=== PATIENT | male | born 1975 | race Caucasian/White ===

== ENCOUNTER 2021-01-16 04:59 | Inpatient (IN) | payer OTHER ==
[2021-01-16] MEDS ORDERED: NITROGLYCERIN SL TABS 0.4 MG TAB SUBLINGUAL STA ×2 (05:00→05:04)
[2021-01-16] MEDS ORDERED: ENALAPRILAT 1.25 MG/ML 1 ML VIAL IVP STA (05:00)
[2021-01-16] MEDS ORDERED: MORPHINE SULFATE 4 MG/ML SYRINGE IVP STA (05:00)
[2021-01-16] MEDS ORDERED: NITROGLYCERIN-D5W PMX 50 MG in DEXTROSE/WATER 1 250ML.BAG IV ONE (05:00)
[2021-01-16 05:12] LABS: Basophils # (A) 0.2 k/uL (0-0.2); Basophils % (A) 1 %; Eosinophils # (A) 0.6 k/uL (0-0.7); Eosinophils % (A) 3 %; HCT 46.4 % (39.0-53.0); HGB 14.5 gm/dL (13.0-17.5); Hypochromasia Moderate; Lymphocytes # (A) 5.6 k/uL (1.0-4.8); Lymphocytes % (A) 27 %; MCH 31.5 pg (25.0-35.0); MCHC 31.2 g/dL (31.0-37.0); MCV 100.8 fL (80.0-100.0); Mean Platelet Volume 7.7; Monocytes # (A) 0.7 k/uL (0-1.0); Monocytes % (A) 4 %; Neutrophils # (A) 13.3 k/uL (1.3-7.7); Neutrophils % (A) 64 %; Platelet Count 497 k/uL (150-450); RBC 4.61 m/uL (4.30-5.90); RDW 12.5 % (11.5-15.5); WBC 20.6 k/uL (3.8-10.6)
--- NOTE | 2021-01-16 05:13 | XR ---
EXAMINATION TYPE: XR chest 1V portable DATE OF EXAM: 01/16/2021 COMPARISON: NONE HISTORY: Difficulty breathing TECHNIQUE: Single view FINDINGS: There is some diffuse pulmonary interstitial edema. Heart appears enlarged. Mediastinum is normal. Bony thorax is intact. IMPRESSION: Cardiomegaly and pulmonary interstitial edema could be acute pneumonia or heart failure.
[2021-01-16 05:23] LABS: Albumin 4.2 g/dL (3.5-5.0); Calcium 9.2 mg/dL (8.4-10.2); Magnesium 2.2 mg/dL (1.6-2.3); Phosphorus 5.3 mg/dL (2.5-4.5); Total Bilirubin 0.8 mg/dL (0.2-1.3); Total Protein 7.3 g/dL (6.3-8.2)
[2021-01-16 05:27] LABS: INR 0.9 (<1.2); Partial Thromboplastin Time 22.7 sec (22.0-30.0); Prothrombin Time 10.2 sec (9.0-12.0)
[2021-01-16] MEDS ORDERED: HEPARIN SODIUM 1,000 UN/ML (10ML VL) IV ONE (05:27)
[2021-01-16] MEDS ORDERED: NITROGLYCERIN SL TABS 0.4 MG TAB SUBLINGUAL PRN ×2 (05:27→07:14)
[2021-01-16] MEDS ORDERED: ASPIRIN 81 MG PO STA (05:27)
[2021-01-16 05:28] LABS: Potassium 4.4 mmol/L (3.5-5.1)
--- NOTE | 2021-01-16 05:29 | ED ---
SOB HPI - General Chief Complaint: Shortness of Breath Stated Complaint: Difficulty Breathing Time Seen by Provider: 01/16/21 05:00 Source: patient, EMS, RN notes reviewed, old records reviewed Mode of arrival: EMS Limitations: no limitations - History of Present Illness Initial Comments: This is a 45-year-old male to the emergency department for evaluation. Patient Dese for evaluation regards to severe shortness of breath results found of significant chest pain severe hypertension unable to presents story secondary to severe shortness of breath or breathing found to be hypoxic diaphoretic and complaining of chest pain. MD Complaint: shortness of breath, cough, pain with inspiration, "asthma attack", anxiety -: days(s) Radiation: left arm Severity: severe Severity scale (1-10): 10 Quality: aching Consistency: constant Improves With: nothing Worsens With: lying flat, exertion, movement, coughing, inspiration Known History Of: congestive heart failure Context: recent URI Associated Symptoms: chest pain, cough, sputum production, diaphoresis Treatments Prior to Arrival: oxygen, NIPPV - Related Data Allergies Allergy/AdvReac Type Severity Reaction Status Date / Time No Known Allergies Allergy Verified 01/16/21 05:10 Review of Systems ROS Statement: Those systems with pertinent positive or pertinent negative responses have been documented in the HPI. ROS Other: All systems not noted in ROS Statement are negative. Past Medical History Past Medical History: Heart Failure, COPD History of Any Multi-Drug Resistant Organisms: None Reported Past Surgical History: No Surgical Hx Reported Past Psychological History: No Psychological Hx Reported Smoking Status: Current every day smoker Past Alcohol Use History: None Reported Past Drug Use History: None Reported General Exam Limitations: no limitations General appearance: alert, anxious, in distress Head exam: Present: atraumatic, normocephalic, normal inspection Eye exam: Present: normal appearance, PERRL, EOMI. Absent: scleral icterus, conjunctival injection, periorbital swelling ENT exam: Present: normal exam, mucous membranes moist Neck exam: Present: normal inspection. Absent: tenderness, meningismus, lymphadenopathy Respiratory exam: Present: respiratory distress, wheezes, accessory muscle use, decreased breath sounds, prolonged expiratory. Absent: rales, rhonchi, stridor Cardiovascular Exam: Present: normal rhythm, tachycardia, normal heart sounds. Absent: systolic murmur, diastolic murmur, rubs, gallop, clicks GI/Abdominal exam: Present: soft, normal bowel sounds. Absent: distended, tende rness, guarding, rebound, rigid Extremities exam: Present: normal inspection, full ROM, normal capillary refill. Absent: tenderness, pedal edema, joint swelling, calf tenderness Back exam: Present: normal inspection Neurological exam: Present: alert, oriented X3, CN II-XII intact Psychiatric exam: Present: normal affect, normal mood Skin exam: Present: warm, dry, intact, normal color. Absent: rash Course Vital Signs 01/16/21 01/16/21 01/16/21 04:59 05:00 05:18 Temperature 96 F L Pulse Rate 125 H 118 H Respiratory 22 38 H 30 H Rate Blood Pressure 165/108 125/86 O2 Sat by Pulse 88 L 96 Oximetry 01/16/21 05:31 Temperature Pulse Rate 118 H Respiratory 22 Rate Blood Pressure 132/93 O2 Sat by Pulse 97 Oximetry - Reevaluation(s) Reevaluation #1: 01/16/21 05:57 Medical record is reviewed Reevaluation #2: 01/16/21 05:57 Patient has significant persistent shortness of breath on BiPAP blood pressures improved Reevaluation #3: 01/16/21 05:57 STEMI was paged on arrival of EKG Cardiology is aware of this patient - Consultations Consultation #1: Spoke with [facility] we'll admit this patient as well as cardiology who will see patient in the Medical Decision Making - Medical Decision Making 45 male to the ER for evaluation significant sudden onset of shortness of breath hypertensive emergency chest pain found to have ST elevated PR. Patient placed on BiPAP on arrival but was able to be improved from hypertension patient be admitted to [facility] for cardiac evaluation - Lab Data Result diagrams: 01/16/21 05:04 01/16/21 05:04 Lab Results 01/16/21 01/16/21 01/16/21 Range/Units 05:04 05:04 05:04 WBC 20.6 H (3.8-10.6) k/uL RBC 4.61 (4.30-5.90) m/uL Hgb 14.5 (13.0-17.5) gm/dL Hct 46.4 (39.0-53.0) % MCV 100.8 H (80.0-100.0) fL MCH 31.5 (25.0-35.0) pg MCHC 31.2 (31.0-37.0) g/dL RDW 12.5 (11.5-15.5) % Plt Count 497 H (150-450) k/uL MPV 7.7 Neutrophils % 64 % Lymphocytes % 27 % Monocytes % 4 % Eosinophils % 3 % Basophils % 1 % Neutrophils # 13.3 H (1.3-7.7) k/uL Lymphocytes # 5.6 H (1.0-4.8) k/uL Monocytes # 0.7 (0-1.0) k/uL Eosinophils # 0.6 (0-0.7) k/uL Basophils # 0.2 (0-0.2) k/uL Hypochromasia Moderate PT 10.2 (9.0-12.0) sec INR 0.9 (<1.2) APTT 22.7 (22.0-30.0) sec Sodium 137 (137-145) mmol/L Potassium 4.4 (3.5-5.1) mmol/L Chloride 102 (98-107) mmol/L Carbon Dioxide 21 L (22-30) mmol/L Anion Gap 14 mmol/L BUN 14 (9-20) mg/dL Creatinine 1.21 (0.66-1.25) mg/dL Est GFR (CKD-EPI)AfAm 85 (>60 ml/min/1.73 sqM) Est GFR (CKD-EPI)NonAf 73 (>60 ml/min/1.73 sqM) Glucose 322 H (74-99) mg/dL Plasma Lactic Acid Ramin (0.7-2.0) mmol/L Calcium 9.2 (8.4-10.2) mg/dL Phosphorus 5.3 H (2.5-4.5) mg/dL Magnesium 2.2 (1.6-2.3) mg/dL Total Bilirubin 0.8 (0.2-1.3) mg/dL AST 55 (17-59) U/L ALT 48 (4-49) U/L Alkaline Phosphatase 105 (38-126) U/L Troponin I (0.000-0.034) ng/mL NT-Pro-B Natriuret Pep pg/mL Total Protein 7.3 (6.3-8.2) g/dL Albumin 4.2 (3.5-5.0) g/dL 01/16/21 01/16/21 01/16/21 Range/Units 05:04 05:04 05:04 WBC (3.8-10.6) k/uL RBC (4.30-5.90) m/uL Hgb (13.0-17.5) gm/dL Hct (39.0-53.0) % MCV (80.0-100.0) fL MCH (25.0-35.0) pg MCHC (31.0-37.0) g/dL RDW (11.5-15.5) % Plt Count (150-450) k/uL MPV Neutrophils % % Lymphocytes % % Monocytes % % Eosinophils % % Basophils % % Neutrophils # (1.3-7.7) k/uL Lymphocytes # (1.0-4.8) k/uL Monocytes # (0-1.0) k/uL Eosinophils # (0-0.7) k/uL Basophils # (0-0.2) k/uL Hypochromasia PT (9.0-12.0) sec INR (<1.2) APTT (22.0-30.0) sec Sodium (137-145) mmol/L Potassium (3.5-5.1) mmol/L Chloride (98-107) mmol/L Carbon Dioxide (22-30) mmol/L Anion Gap mmol/L BUN (9-20) mg/dL Creatinine (0.66-1.25) mg/dL Est GFR (CKD-EPI)AfAm (>60 ml/min/1.73 sqM) Est GFR (CKD-EPI)NonAf (>60 ml/min/1.73 sqM) Glucose (74-99) mg/dL Plasma Lactic Acid Ramin 6.8 H* (0.7-2.0) mmol/L Calcium (8.4-10.2) mg/dL Phosphorus (2.5-4.5) mg/dL Magnesium (1.6-2.3) mg/dL Total Bilirubin (0.2-1.3) mg/dL AST (17-59) U/L ALT (4-49) U/L Alkaline Phosphatase (38-126) U/L Troponin I 0.083 H* (0.000-0.034) ng/mL NT-Pro-B Natriuret Pep 4150 pg/mL Total Protein (6.3-8.2) g/dL Albumin (3.5-5.0) g/dL - EKG Data -: EKG Interpreted by Me (EKG shows acute ST elevated PR rate of 1:15 AK 162 QRS 90 QTC 0484) - Radiology Data Radiology results: report reviewed (Chest x-ray does show diffuse pulmonary edema), image reviewed Critical Care Time Critical Care Time: Yes Total Critical Care Time: 61 Disposition Clinical Impression: STEMI (ST elevation myocardial infarction), Acute pulmonary edema, Hypertensive emergency, Acute respiratory failure Disposition: ADMITTED IP TO THIS HOSP Condition: Critical Is patient prescribed a controlled substance at d/c from ED?: No
[2021-01-16] MEDS ORDERED: HEPARIN SOD,PORK IN 0.45% NACL 25,000 UNIT in 0.45% NACL 1 250ML.BAG IV SCH ×2 (05:30→08:30)
[2021-01-16] MEDS ORDERED: METOPROLOL TARTRATE 5 MG/5 ML VIAL IVP STA ×2 (05:32)
[2021-01-16] MEDS ORDERED: IV FLUID CONTINUATION 1,000 ML IV ONE (06:05)
[2021-01-16] MEDS ORDERED: LIDOCAINE 1% INJ 10MG/ML (20 ML MDV) ONE (06:13)
[2021-01-16] MEDS ORDERED: HEPARIN SODIUM 1,000 UN/ML (10ML VL) ONE (06:14)
[2021-01-16] MEDS ORDERED: LIDOCAINE 1% INJ 10MG/ML (20 ML MDV) SQ ONE (06:21)
[2021-01-16] MEDS: HEPARIN SODIUM 1,000 UN/ML (10ML VL) IV ONE ×2 (06:25→07:13)
[2021-01-16] MEDS ORDERED: MIDAZOLAM 2 MG/2 ML VIAL IV ONE (06:26)
[2021-01-16] MEDS ORDERED: TICAGRELOR 90 MG TAB ONE (06:29)
[2021-01-16] MEDS ORDERED: FUROSEMIDE 10 MG/ML 4 ML VIAL ONE (06:40)
[2021-01-16] MEDS ORDERED: TICAGRELOR 90 MG TAB PO ONE (06:45)
[2021-01-16] MEDS ORDERED: IOPAMIDOL-370 125ML BTL INJ ONE (07:10)
[2021-01-16] MEDS ORDERED: ATROPINE SULFATE 0.1 MG/ML 10ML SYRINGE IV PRN (07:14)
[2021-01-16] MEDS ORDERED: ZOLPIDEM 5 MG TAB PO PRN (07:14)
[2021-01-16] MEDS ORDERED: MAG HYDROX/AL HYDROX/SIMETH 30 ML CUP PO PRN (07:14)
[2021-01-16] MEDS ORDERED: RX INFO: IV CONTRAST WAS GIVEN 1 EACH MISC MISCELLANE PRN (07:14)
[2021-01-16] MEDS ORDERED: SODIUM CHLORIDE 0.9% 1,000 ML IV SCH (07:15)
--- NOTE | 2021-01-16 07:24 | P.CRDCN ---
History of Present Illness Consult date: 01/16/21 Chief complaint: Chest pain History of present illness: This is a 45-year-old gentleman who was brought to the emergency department for shortness of breath. The patient was in his usual state of health and he went to sleep last night was not experiencing any symptoms he woke up from sleep complaining of shortness of breath and chest discomfort. He was brought to the emergency department where he was found to be in acute anterior ST patient myocardial infarction with EKG showing about [address] segment deviation. The patient also was in respiratory failure secondary to pulmonary edema. He also was hypotensive. The labor and delivery nurse was activated and the patient was emergently taken to the [facility] where he underwent an emergent heart catheterization and was found to have a plaque rupture with thrombus formation involving the proximal LAD by the bifurcation of a large diagonal branch. He also was found to have severe disease involving the right coronary artery. He underwent successful PCI of the culprit lesion in the LAD using drug-eluting stent with an excellent angiographic results and without any complication. With a chief JUNI-3 flow by the end. During the procedure, he continues to be hypotensive with a systolic pressure around 90 and his left ventricular end-diastolic pressure was elevated at 30-35 mmHg. The patient continues to be on BiPAP at 100%. In the light of that I decided to pursue with left ventricular Impella which was placed from right groin approach. The patient tolerated the procedure very well. He will be admitted to the intensive care unit. The amella will be left in place for the next 24-48 hours. We will continue monitor the patient's hemodynamics. He will be on dual antiplatelet therapy along with high intensity statin along with Toprol-XL as well as lisinopril at low doses. He will be also on high intensity statin. An echocardiogram would be performed later on today as well. Please note that the patient was examined in the cardiac labor and delivery nurse after the procedure and he continues to be wheezy and crackly in both lung rodgers. Past Medical History Past Medical History: Heart Failure, COPD History of Any Multi-Drug Resistant Organisms: None Reported Past Surgical History: No Surgical Hx Reported Past Psychological History: No Psychological Hx Reported Smoking Status: Current every day smoker Past Alcohol Use History: None Reported Past Drug Use History: None Reported Medications and Allergies Allergies Allergy/AdvReac Type Severity Reaction Status Date / Time No Known Allergies Allergy Verified 01/16/21 05:10 Physical Exam Vitals: Vital Signs Temp Pulse Resp BP Pulse Ox 01/16/21 05:56 98 22 125/89 97 01/16/21 05:31 118 H 22 132/93 97 01/16/21 05:18 118 H 30 H 125/86 96 01/16/21 05:00 38 H 01/16/21 04:59 96 F L 125 H 22 165/108 88 L Intake and Output 01/15/21 01/16/21 01/16/21 22:59 06:59 14:59 Intake Total 51.1 Balance 51.1 Intake: IV 50 Intake, IV Titration 1.1 Amount Nitroglycerin-D5w Pmx 50 1.1 mg In Dextrose/Water 1 250ml.bag @ 10 MCG/MIN 3 mls/hr IV .Q24H ONE Rx#: [id number] Other: Weight 111.13 kg - Constitutional General appearance: no acute distress - Respiratory Respiratory: bilateral: rales, wheezing - Cardiovascular Rhythm: regular Heart sounds: normal: S1, S2 Results 01/16/21 05:04 01/16/21 05:04 Cardiac Enzymes 01/16/21 01/16/21 Range/Units 05:04 05:04 AST 55 (17-59) U/L Troponin I 0.083 H* (0.000-0.034) ng/mL Coagulation 01/16/21 Range/Units 05:04 PT 10.2 (9.0-12.0) sec APTT 22.7 (22.0-30.0) sec CBC 01/16/21 Range/Units 05:04 WBC 20.6 H (3.8-10.6) k/uL RBC 4.61 (4.30-5.90) m/uL Hgb 14.5 (13.0-17.5) gm/dL Hct 46.4 (39.0-53.0) % Plt Count 497 H (150-450) k/uL Comprehensive Metabolic Panel 01/16/21 Range/Units 05:04 Sodium 137 (137-145) mmol/L Potassium 4.4 (3.5-5.1) mmol/L Chloride 102 (98-107) mmol/L Carbon Dioxide 21 L (22-30) mmol/L BUN 14 (9-20) mg/dL Creatinine 1.21 (0.66-1.25) mg/dL Glucose 322 H (74-99) mg/dL Calcium 9.2 (8.4-10.2) mg/dL AST 55 (17-59) U/L ALT 48 (4-49) U/L Alkaline Phosphatase 105 (38-126) U/L Total Protein 7.3 (6.3-8.2) g/dL Albumin 4.2 (3.5-5.0) g/dL Current Medications Generic Name Dose Route Start Last Admin Trade Name Freq PRN Reason Stop Dose Admin Al Hydroxide/Mg Hydroxide 30 ml 01/16/21 07:14 Mag Hydrox/Al Hydrox/Simeth 30 Ml Cup PO Q4HR PRN Heartburn Aspirin 325 mg 01/17/21 09:00 Aspirin 325 Mg Tab PO DAILY LILIYA Aspirin 81 mg 01/16/21 09:00 Aspirin 81 Mg PO DAILY LILIYA Atorvastatin Calcium 80 mg 01/16/21 21:00 Atorvastatin 80 Mg Tab PO HS [facility] Atropine Sulfate 0.5 mg 01/16/21 07:14 Atropine Sulfate 0.1 Mg/Ml 10ml Syringe IV ONCE PRN Symptomatic Bradycardia Nitroglycerin/Dextrose 50 mg/ 250 mls @ 3 mls/hr 01/16/21 05:00 01/16/21 05:32 IV Solution IV 01/17/21 04:59 5 mcg/min .Q24H ONE 1.5 mls/hr Titration Protocol 10 MCG/MIN Heparin Sodium/Sodium Chloride 250 mls @ 10 mls/hr 01/16/21 05:30 01/16/21 05:40 25,000 unit/ Sodium Chloride IV 8.9985 units/kg/hr .Q24H LILIYA 10 mls/hr Administration Protocol 8.9985 UNITS/KG/HR Sodium Chloride 1,000 mls @ 75 mls/hr 01/16/21 07:15 Saline 0.9% IV 01/16/21 12:16 .[id number] [facility] Lisinopril 2.5 mg 01/16/21 09:00 Lisinopril 2.5 Mg Tab PO DAILY [facility] Metoprolol Succinate 25 mg 01/16/21 09:00 Metoprolol Succinate (Er) 25 Mg Tab.Er.24h PO DAILY [facility] Miscellaneous Information 1 each 01/16/21 07:14 Rx Info: Iv Contrast Was Given 1 Each Misc MISCELLANE 01/18/21 07:14 DAILY PRN Per Protocol Nitroglycerin 0.4 mg 01/16/21 05:27 Nitroglycerin Sl Tabs 0.4 Mg Tab SUBLINGUAL Q5M PRN Chest Pain Nitroglycerin 0.4 mg 01/16/21 07:14 Nitroglycerin Sl Tabs 0.4 Mg Tab SUBLINGUAL Q5M PRN Chest Pain Ticagrelor 90 mg 01/16/21 09:00 Ticagrelor 90 Mg Tab PO BID LILIYA Zolpidem Tartrate 5 mg 01/16/21 07:14 Zolpidem 5 Mg Tab PO HS PRN Insomnia Intake and Output 01/15/21 01/16/21 01/16/21 22:59 06:59 14:59 Intake Total 51.1 Balance 51.1 Intake: IV 50 Intake, IV Titration 1.1 Amount Nitroglycerin-D5w Pmx 50 1.1 mg In Dextrose/Water 1 250ml.bag @ 10 MCG/MIN 3 mls/hr IV .Q24H ONE Rx#: [id number] Other: Weight 111.13 kg 01/16/21 05:04 01/16/21 05:04 Assessment and Plan Assessment: Assessment #[address] patient myocardial infarction #2 cardiogenic shock related to acute myocardial infarction #3 acute pulmonary edema secondary to cardiogenic shock #4 severely elevated left-sided filling pressure #5 status post PCI of the LAD #6 critical disease involving the right coronary artery Plan #1 continue dual antiplatelet therapy. Continue heparin because of the Impella #2 continue high intensity statin #3 anti-ischemic medications including beta mauricio and YADIRA inhibitor #4 continue monitoring the patient's hemodynamically #5 leave the Impella for the next 24-48 hours #6 monitor for any ischemic right leg #7 an echocardiogram was Doppler #8 follow-up with the patient
[2021-01-16 07:56] LABS: Glucose,Whole Blood 256 mg/dL (75-99)
--- NOTE | 2021-01-16 08:09 | CC ---
CARDIAC CATHETERIZATION REPORT DATE OF SERVICE: January 16. PERFORMING PHYSICIAN: Pino Wagner MD. PROCEDURE PERFORMED: 1. Selective left and right coronary angiogram. 2. Successful stenting of the proximal left anterior descending artery using 3.5 x 18 mm Xience drug-eluting stent with an excellent angiographic result and reduction of stenosis from 99% to 0% with JUNI-3 flow. 3. Left heart catheterization. 4. Successful placement of Impella in the left ventricle via right groin approach. 5. Selective right common femoral artery angiogram. INDICATION: This is a 45-year-old gentleman who was brought to the emergency department with chest discomfort and shortness of breath. He was diagnosed with acute anterior ST-elevation myocardial infarction complicated by cardiogenic shock as well as pulmonary edema. APPROACH: Right common femoral artery. COMPLICATION: None. LEVEL OF SEDATION: Moderate with sedation length of 46 minutes. Door to balloon is 87 minutes. PROCEDURE DESCRIPTION: After obtaining an informed consent, the patient was brought to the cardiac veterinary laboratory diagnostician. The right common femoral artery was cannulated using micropuncture technique, the micropuncture wire passed easily. Then I placed a 6-Lithuanian sheath 11 cm at the right radial artery. I did selective left coronary angiogram using JL4 guiding catheter. Selective right coronary angiogram was performed using JR4 catheter. After that, I did intervene on the LAD. Please see a separate paragraph for that. After that I did leave heart catheterization using 6-Lithuanian pigtail catheter. After that I did place an Impella line in the left ventricle. Please see a separate paragraph for that. SELECTIVE CORONARY ANGIOGRAM: 1. The left main is angiographically normal. It bifurcates into LCX and LAD. 2. The LCX is a large-caliber vessel. The LCX is a nondominant vessel. Proximally appeared to be angiographically normal and gives rise into a large first obtuse marginal branch which appeared to have mild disease in the mid portion. The mid left circumflex has a tight lesion. This is by the bifurcation of the second obtuse marginal branch which is a large caliber vessel as well. The lesion involving the ostial of that OM branch which has a lesion appeared to be in the range of 80% to 90%. The circumflex continues after that as a moderate caliber vessel in the AV groove. 3. The LAD is a large-caliber vessel. The proximal LAD has a critical lesion appeared to be in the range of 99.9% just before the bifurcation of a large diagonal branch. The mid and distal LAD appeared to have mild disease only. 4. The right coronary artery is a large-caliber vessel. The RCA has critical disease in the mid portion appeared to be in the range of 80-90 percent with an ulcerated lesion. HEMODYNAMICS: The LVEDP was about 35 mmHg without significant gradient across the aortic valve. PCI OF THE LAD: Anticoagulation was achieved using heparin with continuous ACT monitoring throughout the procedure. I did wire the LAD using a run-through wire. I did balloon angioplasty of the LAD using x 12 mm balloon before I deployed 3.5 x 18 mm Xience ADELE. The stent was positioned under fluoroscopy guidance and deployed under 12 atmospheres for 20 seconds. I did post-dilate the stent using 3.75 mm balloon. The following angiogram showed excellent angiographic results and the procedure was completed without any complication in terms of PCI. PLACEMENT OF IMPELLA IN THE LEFT VENTRICLE: I did initially I placed 2 Perclose at 10 and 2 o'clock using 0.035 wire. Subsequently, after I placed a second Perclose, I put an 8-Lithuanian 11 cm sheath. After that and after the Impella was prepped, I did upgrade my sheath from 8-12 Lithuanian sheath using 0.035 stiff wire. Subsequently I crossed the LV using regular 035 wire with a pigtail catheter. Subsequently I did place an 018 wire in the pigtail catheter and pulled the pigtail catheter out. Subsequently I advanced the Impella over the 018 wire to the LV. The Impella was placed under fluoroscopic guidance in the LV and in an area which was not portable. Subsequently the Impella was connected and pumping was started. The procedure was completed without any complication. CONCLUSION: 1. This is a 45-year-old gentleman who was brought to the emergency department with chest discomfort and was found to be in acute anterior ST-elevation myocardial infarction complicated by cardiogenic shock and pulmonary edema. 2. Critical disease involving the proximal left anterior descending artery. I did perform successful stenting of the LAD with an excellent angiographic results with JUNI-3 flow. 3. Critical disease involving the left circumflex by the bifurcation of the second obtuse marginal branch. 4. Critical disease involving the right coronary artery in the mid portion with an ulcerated lesion. 5. Severely elevated left-sided filling pressure. The LVEDP was at least 35 mmHg. 6. An Impella was placed in the left ventricle via right groin approach. POSTPROCEDURE MANAGEMENT: 1. Dual anti-platelet therapy. 2. Anti-ischemic medication. He will be started on a small dose of beta mauricio and YADIRA inhibitor. 3. High-intensity statin. 4. Continue heparin just because of the Impella still in place. 5. Continue monitoring the ACT per protocol. 6. Obtain an echocardiogram with Doppler. 7. Monitor the patient hemodynamically. 8. Standard groin care. 9. Follow up with the patient. MMCARMINEL / RADHAN: [id number] /
[2021-01-16] MEDS ORDERED: HEPARIN SODIUM 1,000 UN/ML (10ML VL) IV PRN (08:25)
[2021-01-16] MEDS ORDERED: HEPARIN SODIUM,PORCINE 12,500 UNIT in DEXTROSE 5% IN WATER 500 ML IV SCH ×2 (08:30)
[2021-01-16] MEDS ORDERED: propofoL 100 ML IV ONE (08:47)
[2021-01-16] MEDS ORDERED: hydrALAZINE HCL 20 MG/ML 1 ML VIAL IVP STA (08:47)
[2021-01-16] MEDS ORDERED: NALOXONE 0.4 MG/ML 1 ML VIAL IV PRN (08:54)
[2021-01-16] MEDS ORDERED: FUROSEMIDE 10 MG/ML 4 ML VIAL IV SCH (09:00)
[2021-01-16] MEDS ORDERED: CHLORHEXIDINE GLUCONATE 15 ML CUP MUCOUS MEM SCH (09:00)
[2021-01-16] MEDS ORDERED: FAMOTIDINE 20 MG/2 ML VIAL IV SCH (09:00)
--- NOTE | 2021-01-16 09:08 | XR ---
EXAMINATION TYPE: XR chest 1V portable DATE OF EXAM: 01/16/2021 COMPARISON: 01/16/2021 HISTORY: Shortness of breath TECHNIQUE: Single frontal view of the chest is obtained. FINDINGS: There is persistent pulmonary vascular congestion and moderate interstitial edema. Heart s ize is prominent. There is no pneumothorax or large pleural effusion. The osseous structures are intact IMPRESSION: Findings most consistent with moderate CHF unchanged compared to previous.
[2021-01-16] MEDS ORDERED: CISATRACURIUM 2 MG/ML 5 ML VIAL IV ONE (09:18)
--- NOTE | 2021-01-16 09:24 | XR ---
EXAMINATION TYPE: XR chest 1V portable DATE OF EXAM: 01/16/2021 COMPARISON: 01/16/2021 HISTORY: Tube placement TECHNIQUE: Single frontal view of the chest is obtained. FINDINGS: There is an ET tube approximately 6.6 cm above the ruma. The heart is moderately enlarged and there is pulmonary vascular congestion and interstitial edema un changed compared to previous. There is no large pleural effusion. There is no pneumothorax. The osseous structures are intact. IMPRESSION: Interval insertion of an ET tube approximately 6.6 cm above the ruma. There is no cooney ge in the acute cardia pulmonary disease most consistent with moderate CHF.
[2021-01-16 09:50] LABS: ABG Base Excess -4.8 mmol/L; ABG HCO3 24 mmol/L (21-25); ABG Oxygen Saturation 93.1 % (94-97); ABG PCO2 64 mmHg (35-45); ABG PO2 80 mmHg (83-108); ABG TCO2 26 mmol/L (19-24)
[2021-01-16 09:52] LABS: ABG PH 7.18 (7.35-7.45); Allen Test Performed? no
[2021-01-16] MEDS ORDERED: IPRATROPIUM-ALBUTEROL 3 ML NEB INHALATION PRN (10:04)
[2021-01-16] MEDS: METOPROLOL SUCCINATE (ER) 25 MG TAB.ER.24H PO SCH ×2 (10:16→11:46)
[2021-01-16] MEDS ORDERED: NOREPINEPHRIN 4 MG-0.9% NS PMX 4 MG/250 ML ML IV ONE (11:10)
[2021-01-16] MEDS ORDERED: NOREPINEPHRINE 4 MG in SODIUM CHLORIDE 0.9% 250 ML IV SCH (11:30)
--- NOTE | 2021-01-16 12:06 | P.PN ---
Subjective Cardiology progress note Patient seen and examined. Patient underwent heart catheterization with PCI of LAD with residual circumflex and RCA stenosis as well as Impella . Unfortunately patient had respiratory distress and had become hypertensive with systolics up into the 170s over 100. Therefore nitroglycerin and then started and hydralazine given however patient eventually intubated. Blood pressure is much better controlled since intubation and has been on nitroglycerin drip with goal map of 65. Patient still with some difficulty oxygenating on ventilator with FiO2 100% and a PEEP of 15 with a pulse ox of 91% currently. Patient had been given labetalol earlier and emergency department. 2-D echo reviewed with decreased EF 30% as well as severe mitral regurgitation which appears related to the posterior leaflet tethering from inferior hypokinesis. There is also turbulent flow noted around the tricuspid valve and in the right ventricle, suspect mainly related to artifact from Impella however we will further evaluate with SHALINI. Patient also with small to moderate pericardial effusion however does not appear to have any tamponade physiology. Do not feel can escalate Impella to CP secondary to some PAD around the right femoral site. Ideally patient needs ECMO and we will work on transferring patient. May consider intervention of RCA or circumflex to attempt to relieve any possible ischemic mitral regurgitation however would attempt to optimize him currently at this standpoint. Continue with supportive care. Prognosis guarded. No family in chart to update. Objective - Vital Signs Vital signs: Vital Signs Temp 96 F L 01/16/21 04:59 Pulse 98 01/16/21 05:56 Resp 22 01/16/21 05:56 BP 125/89 01/16/21 05:56 Pulse Ox 97 01/16/21 05:56 Intake & Output 01/15/21 01/16/21 01/16/21 18:59 06:59 18:59 Intake Total 51.1 57.295 Balance 51.1 57.295 Weight 111.13 kg Intake: IV 50 Intake, IV Titration 1.1 57.295 Amount Nitroglycerin-D5w Pmx 50 1.1 54.825 mg In Dextrose/Water 1 250ml.bag @ 10 MCG/MIN 3 mls/hr IV .Q24H [facility] Rx#: [id number] Norepinephrine 4 mg In 2.47 Sodium Chloride 0.9% 250 ml @ 0.05 MCG/KG/MIN 21. 17 mls/hr IV .Q12H [facility] Rx #:[id number] - Labs CBC & Chem 7: 01/16/21 05:04 01/16/21 05:04 Labs: Abnormal Lab Results - Last 24 Hours (Table) 01/16/21 01/16/21 01/16/21 Range/Units 05:04 05:04 05:04 WBC 20.6 H (3.8-10.6) k/uL MCV 100.8 H (80.0-100.0) fL Plt Count 497 H (150-450) k/uL Neutrophils # 13.3 H (1.3-7.7) k/uL Lymphocytes # 5.6 H (1.0-4.8) k/uL APTT (22.0-30.0) sec ABG pH (7.35-7.45) ABG pCO2 (35-45) mmHg ABG pO2 (83-108) mmHg ABG Total CO2 (19-24) mmol/L ABG O2 Saturation (94-97) % Carbon Dioxide 21 L (22-30) mmol/L Glucose 322 H (74-99) mg/dL POC Glucose (mg/dL) (75-99) mg/dL Plasma Lactic Acid Ramin 6.8 H* (0.7-2.0) mmol/L Phosphorus 5.3 H (2.5-4.5) mg/dL Troponin I (0.000-0.034) ng/mL 01/16/21 01/16/21 01/16/21 Range/Units 05:04 07:54 07:58 WBC (3.8-10.6) k/uL MCV (80.0-100.0) fL Plt Count (150-450) k/uL Neutrophils # (1.3-7.7) k/uL Lymphocytes # (1.0-4.8) k/uL APTT (22.0-30.0) sec ABG pH (7.35-7.45) ABG pCO2 (35-45) mmHg ABG pO2 (83-108) mmHg ABG Total CO2 (19-24) mmol/L ABG O2 Saturation (94-97) % Carbon Dioxide (22-30) mmol/L Glucose (74-99) mg/dL POC Glucose (mg/dL) 256 H (75-99) mg/dL Plasma Lactic Acid Ramin (0.7-2.0) mmol/L Phosphorus (2.5-4.5) mg/dL Troponin I 0.083 H* 3.960 H* (0.000-0.034) ng/mL 01/16/21 01/16/21 Range/Units 07:58 09:48 WBC (3.8-10.6) k/uL MCV (80.0-100.0) fL Plt Count (150-450) k/uL Neutrophils # (1.3-7.7) k/uL Lymphocytes # (1.0-4.8) k/uL APTT 59.7 H (22.0-30.0) sec ABG pH 7.18 L* (7.35-7.45) ABG pCO2 64 H (35-45) mmHg ABG pO2 80 L (83-108) mmHg ABG Total CO2 26 H (19-24) mmol/L ABG O2 Saturation 93.1 L (94-97) % Carbon Dioxide (22-30) mmol/L Glucose (74-99) mg/dL POC Glucose (mg/dL) (75-99) mg/dL Plasma Lactic Acid Ramin (0.7-2.0) mmol/L Phosphorus (2.5-4.5) mg/dL Troponin I (0.000-0.034) ng/mL
[2021-01-16] MEDS: IPRATROPIUM-ALBUTEROL 3 ML NEB INHALATION SCH ×2 (12:11→16:45)
--- NOTE | 2021-01-16 12:17 | P.CNPUL ---
History of Present Illness Consult date: 01/16/21 Requesting physician: Esteban Johnson Reason for consult: dyspnea, hypoxemia, abnormal CXR/CT, other Chief complaint: Acute hypoxia, interstitial edema, acute ST elevated myocardial infarction History of present illness: 45-year-old white male patient with past medical history of COPD, chronic and ongoing history of smoking, chronic congestive heart failure with unknown ejection fraction, who presented to the emergency department on 01/16/2021 early in the morning. Patient woke up from his sleep early this morning complaining of acute shortness of breath and chest discomfort. His EKG in the ER showed [address] segment elevation. Patient was also in hypoxic respiratory failure secondary to pulmonary edema. He was hypotensive. He was taken to the label remover emergently and was found to have a plaque rupture with thrombus formation involving the proximal LAD, and severe disease involving the right coronary artery. He had successful PCI of the culprit lesion in the LAD using drug-el uting stent. During the procedure he continued to be hypotensive with a systolic pressure around 90, and his LVEDP was elevated at 30-35 mmHg. Impella device was inserted. He continue to be short of breath, he required BiPAP support at 100% FiO2. Subsequently he failed BiPAP, and was intubated and placed on mechanical ventilator, this morning he is intubated, sedated, on assist-control mode of ventilation with a rate of 24, tidal volume is 450, FiO2 of 100% and PEEP of 10, this morning's blood gas shows pO2 of 80, pCO2 of 64, and pH of 7.18, and his PEEP was increased to 15. He is currently on 0.9 at 75 ML per hour, heparin infusion at weight-based protocol, nitroglycerin is a 50 mics per kilo per minute, and improving and is a 50 mics per kilo per minute. His chest x-ray this morning show a persistent pulmonary vascular congestion and moderate interstitial edema. He was given a dose of IV Lasix. His lab work has been reviewed, his admission blood work showed a white blood cell count of 20.6, hemoglobin is 14.5, platelet count is 497, INR 0.9. Sodium is 137, potassium is 4.4, chloride is 102, CO2 is 21, BUN is 14, creatinine is 1.2, his glucose level was 322, lactic acid was 6.8, subsequently improved and is down to 1.3, these were within normal limits, his troponins were 0.083, and 3.960, proBNP was 4150, COVID-19 PCR was negative. Review of Systems All systems: negative Constitutional: Denies chills, Denies fever Eyes: denies blurred vision, denies pain Ears, nose, mouth and throat: Denies headache, Denies sore throat Cardiovascular: Denies chest pain, Denies shortness of breath Respiratory: Reports dyspnea, Denies cough Gastrointestinal: Denies abdominal pain, Denies diarrhea, Denies nausea, Denies vomiting Musculoskeletal: Denies myalgias Integumentary: Denies pruritus, Denies rash Neurological: Denies numbness, Denies weakness Psychiatric: Denies anxiety, Denies depression Endocrine: Denies fatigue, Denies weight change Past Medical History Past Medical History: Heart Failure, COPD History of Any Multi-Drug Resistant Organisms: None Reported Past Surgical History: No Surgical Hx Reported Past Psychological History: No Psychological Hx Reported Smoking Status: Current every day smoker Past Alcohol Use History: None Reported Past Drug Use History: None Reported Medications and Allergies Home Medications Medication Instructions Recorded Confirmed Type Atorvastatin Calcium [Lipitor] 20 mg PO DAILY 01/16/21 01/16/21 History Levothyroxine Sodium [Synthroid] 100 mcg PO DAILY 01/16/21 01/16/21 History glipiZIDE [Glucotrol] 5 mg PO BID-W/MEALS 01/16/21 01/16/21 History metFORMIN HCL [Glucophage] 500 mg PO BID-W/MEALS 01/16/21 01/16/21 History Allergies Allergy/AdvReac Type Severity Reaction Status Date / Time No Known Allergies Allergy Verified 01/16/21 09:32 Physical Exam Vitals: Vital Signs Temp Pulse Resp BP Pulse Ox 01/16/21 05:56 98 22 125/89 97 01/16/21 05:31 118 H 22 132/93 97 01/16/21 05:18 118 H 30 H 125/86 96 01/16/21 05:00 38 H 01/16/21 04:59 96 F L 125 H 22 165/108 88 L Intake and Output 01/15/21 01/16/21 01/16/21 22:59 06:59 14:59 Intake Total 51.1 57.295 Balance 51.1 57.295 Intake: IV 50 Intake, IV Titration 1.1 57.295 Amount Nitroglycerin-D5w Pmx 50 1.1 54.825 mg In Dextrose/Water 1 250ml.bag @ 10 MCG/MIN 3 mls/hr IV .Q24H [facility] Rx#: [id number] Norepinephrine 4 mg In 2.47 Sodium Chloride 0.9% 250 ml @ 0.05 MCG/KG/MIN 21. 17 mls/hr IV .Q12H [facility] Rx #:[id number] Other: Weight 111.13 kg GENERAL EXAM: Intubated, sedated, 45-year-old white male, on assist-control mode of ventilation, with a rate of 24, tidal volume is 400, FiO2 of 100% and PEEP of 10. comfortable in no apparent distress. HEAD: Normocephalic/atraumatic. EYES: Normal reaction of pupils, equal size. Conjunctiva pink, sclera white. NOSE: Clear with pink turbinates. THROAT: No erythema or exudates. NECK: No masses, no JVD, no thyroid enlargement, no adenopathy. CHEST: No chest wall deformity. Symmetrical expansion. LUNGS: Equal air entry with bilateral crackles CVS: Regular rate and rhythm, normal S1 and S2, no gallops, no murmurs, no rubs ABDOMEN: Soft, nontender. No hepatosplenomegaly, normal bowel sounds, no guarding or rigidity. EXTREMITIES: No clubbing, no edema, no cyanosis, 2+ pulses and upper and lower extremities. MUSCULOSKELETAL: Muscle strength and tone normal. SPINE: No scoliosis or deformity SKIN: No rashes CENTRAL NERVOUS SYSTEM: Intubated, and sedated No focal deficits, tone is norm al in all 4 extremities. Results - Laboratory Findings CBC and BMP: 01/16/21 05:04 01/16/21 05:04 ABG ABG pH 7.18 (7.35-7.45) L* 01/16/21 09:48 ABG pCO2 64 mmHg (35-45) H 01/16/21 09:48 ABG pO2 80 mmHg (83-108) L 01/16/21 09:48 ABG O2 Saturation 93.1 % (94-97) L 01/16/21 09:48 PT/INR, D-dimer PT 10.2 sec (9.0-12.0) 01/16/21 05:04 INR 0.9 (<1.2) 01/16/21 05:04 Abnormal lab findings: Abnormal Labs 01/16/21 01/16/21 01/16/21 05:04 05:04 05:04 WBC 20.6 H MCV 100.8 H Plt Count 497 H Neutrophils # 13.3 H Lymphocytes # 5.6 H APTT ABG pH ABG pCO2 ABG pO2 ABG Total CO2 ABG O2 Saturation Carbon Dioxide 21 L Glucose 322 H POC Glucose (mg/dL) Plasma Lactic Acid Ramin 6.8 H* Phosphorus 5.3 H Troponin I 01/16/21 01/16/21 01/16/21 05:04 07:54 07:58 WBC MCV Plt Count Neutrophils # Lymphocytes # APTT ABG pH ABG pCO2 ABG pO2 ABG Total CO2 ABG O2 Saturation Carbon Dioxide Glucose POC Glucose (mg/dL) 256 H Plasma Lactic Acid Ramin Phosphorus Troponin I 0.083 H* 3.960 H* 01/16/21 01/16/21 07:58 09:48 WBC MCV Plt Count Neutrophils # Lymphocytes # APTT 59.7 H ABG pH 7.18 L* ABG pCO2 64 H ABG pO2 80 L ABG Total CO2 26 H ABG O2 Saturation 93.1 L Carbon Dioxide Glucose POC Glucose (mg/dL) Plasma Lactic Acid Ramin Phosphorus Troponin I - Diagnostic Findings Chest x-ray: report reviewed, image reviewed Additional studies: EKG reviewed Assessment and Plan Plan: Assessment: #1. Acute ST elevated myocardial infarction, cardiogenic shock related to acute CT #2. Coronary artery disease, status post PCI of the LAD, and there is evidence of critical disease involving the right coronary artery #3. Acute hypoxic respiratory failure related to acute pulmonary edema, and cardiogenic shock, status post intubation and placement on mechanical ventilator #4. History of COPD #5. Current history of smoking #6. History of CHF, with unknown ejection fraction #7. Leukocytosis possibly related to acute myocardial infarction #8. Lactic acidosis, related to cardiogenic shock, the related to sepsis Plan: Increase PEEP up to 15 Continue weaning FiO2 to maintain O2 saturations at or above 90-92% Continue antiplatelet therapy per cardiology Patient has been started on IV Lasix Continue close hemodynamic monitoring We will add breathing treatments GI and DVT prophylaxis Follow-up labs, blood gases and chest x-ray in the morning I performed a history & physical examination of the patient and discussed their management with my nurse practitioner, Kassandra Tejada. I reviewed the nurse practitioner's note and agree with the documented findings and plan of care. Lung sounds are positive for dim breath sounds throughout the lung rodgers. The findings and the impression was discussed with the patient. I attest to the documentation by the nurse practitioner. Time with Patient: Greater than 30
--- NOTE | 2021-01-16 12:24 | P.PN ---
Subjective Cardiology progress note: Initial echo concerning for severe ischemic mitral regurgitation with what appeared to be posterior leaflet tethering and severe mitral regurgitation however there was a good amount of artifact related to the Impella. Therefore we performed a SHALINI which showed only mild to moderate mitral regurgitation and continued EF 30% with similar pericardial effusion. We will continue to treat medically and continue with afterload reduction, nitroglycerin and diuretics. Patient appears somewhat more stable on ventilator however urine output has somewhat decreased. We will avoid inotropes at this time and may consider lexi tion of nitroprusside if unable to get MAP around 65. Objective - Vital Signs Vital signs: Vital Signs Temp 96 F L 01/16/21 04:59 Pulse 98 01/16/21 05:56 Resp 22 01/16/21 05:56 BP 125/89 01/16/21 05:56 Pulse Ox 97 01/16/21 05:56 Intake & Output 01/15/21 01/16/21 01/16/21 18:59 06:59 18:59 Intake Total 51.1 57.295 Balance 51.1 57.295 Weight 111.13 kg Intake: IV 50 Intake, IV Titration 1.1 57.295 Amount Nitroglycerin-D5w Pmx 50 1.1 54.825 mg In Dextrose/Water 1 250ml.bag @ 10 MCG/MIN 3 mls/hr IV .Q24H [facility] Rx#: [id number] Norepinephrine 4 mg In 2.47 Sodium Chloride 0.9% 250 ml @ 0.05 MCG/KG/MIN 21. 17 mls/hr IV .Q12H [facility] Rx #:[id number] - Labs CBC & Chem 7: 01/16/21 05:04 01/16/21 05:04 Labs: Abnormal Lab Results - Last 24 Hours (Table) 01/16/21 01/16/21 01/16/21 Range/Units 05:04 05:04 05:04 WBC 20.6 H (3.8-10.6) k/uL MCV 100.8 H (80.0-100.0) fL Plt Count 497 H (150-450) k/uL Neutrophils # 13.3 H (1.3-7.7) k/uL Lymphocytes # 5.6 H (1.0-4.8) k/uL APTT (22.0-30.0) sec ABG pH (7.35-7.45) ABG pCO2 (35-45) mmHg ABG pO2 (83-108) mmHg ABG Total CO2 (19-24) mmol/L ABG O2 Saturation (94-97) % Carbon Dioxide 21 L (22-30) mmol/L Glucose 322 H (74-99) mg/dL POC Glucose (mg/dL) (75-99) mg/dL Plasma Lactic Acid Ramin 6.8 H* (0.7-2.0) mmol/L Phosphorus 5.3 H (2.5-4.5) mg/dL Troponin I (0.000-0.034) ng/mL 01/16/21 01/16/21 01/16/21 Range/Units 05:04 07:54 07:58 WBC (3.8-10.6) k/uL MCV (80.0-100.0) fL Plt Count (150-450) k/uL Neutrophils # (1.3-7.7) k/uL Lymphocytes # (1.0-4.8) k/uL APTT (22.0-30.0) sec ABG pH (7.35-7.45) ABG pCO2 (35-45) mmHg ABG pO2 (83-108) mmHg ABG Total CO2 (19-24) mmol/L ABG O2 Saturation (94-97) % Carbon Dioxide (22-30) mmol/L Glucose (74-99) mg/dL POC Glucose (mg/dL) 256 H (75-99) mg/dL Plasma Lactic Acid Ramin (0.7-2.0) mmol/L Phosphorus (2.5-4.5) mg/dL Troponin I 0.083 H* 3.960 H* (0.000-0.034) ng/mL 01/16/21 01/16/21 Range/Units 07:58 09:48 WBC (3.8-10.6) k/uL MCV (80.0-100.0) fL Plt Count (150-450) k/uL Neutrophils # (1.3-7.7) k/uL Lymphocytes # (1.0-4.8) k/uL APTT 59.7 H (22.0-30.0) sec ABG pH 7.18 L* (7.35-7.45) ABG pCO2 64 H (35-45) mmHg ABG pO2 80 L (83-108) mmHg ABG Total CO2 26 H (19-24) mmol/L ABG O2 Saturation 93.1 L (94-97) % Carbon Dioxide (22-30) mmol/L Glucose (74-99) mg/dL POC Glucose (mg/dL) (75-99) mg/dL Plasma Lactic Acid Ramin (0.7-2.0) mmol/L Phosphorus (2.5-4.5) mg/dL Troponin I (0.000-0.034) ng/mL
[2021-01-16 12:38] LABS: Glucose,Whole Blood 279 mg/dL (75-99)
[2021-01-16] MEDS ORDERED: NITROPRUSSIDE 50 MG in DEXTROSE 5% IN WATER 250 ML IV SCH ×2 (13:00)
--- NOTE | 2021-01-16 13:21 | P.HPIM ---
History of Present Illness This is a pleasant 45 years old male with past medical history of heart failure and COPD Presents because of difficulty breathing for 1 hour duration. He was receiving steroids and duoneb treatment in the ambulance. The patient could not provide information because he is intubated currently. Initially patient was diagnosed with a STEMI and he underwent emergent cardiac cath. After cardiac cath patient shortness of breath got more severe, his this became stenotic, electrical logging engineer team were consulted and they give him 10 mg of IV hydralazine, Lasix with recommendation for intubation and pulmonary team were consulted Vitas looks stable except for mild tachycardia 118. Afebrile Labs showed leukocytosis of 20.6 K, rest of the CBC is unremarkable. Platelets are 497. INR 0.9, BMP is unremarkable, creatinine within the reference range and 1.2, glucose elevated at 322. Elevated lactic acid at 6.8. Elevated troponin 0.08. Rest of liver enzymes are unremarkable. ProBNP is 4150. Coronavirus not detected Chest x-ray: Cardiomegaly with pulmonary interstitial edema could be acute pneumonia or heart failure EKG showing ST elevation in V1 to V4. Sinus tachycardia and 115. QTC is 484. Patient underwent emergent cardiac cath by cardiology team earlier this morning showing critical disease of the proximal left anterior descending artery status post PCI and stenting of the LAD. Also with critical disease involving the left circumflex artery. And the right coronary artery, severely elevated left sided filling pressure. His arterial blood gas showing pH of 7.1, pCO2 elevated at 64 and pO2 of 80. Review of Systems CONSTITUTIONAL: No fever, no malaise, no fatigue. HEENT: No recent visual problems or hearing problems. Denied any sore throat. CARDIOVASCULAR: No orthopnea, PND, no palpitations, no syncope. PULMONARY: No shortness of breath, no cough, no hemoptysis. GASTROINTESTINAL: No diarrhea, no nausea, no vomiting, no abdominal pain. Normoactive bowel sounds. NEUROLOGICAL: No headaches, no weakness, no numbness. HEMATOLOGICAL: Denies any bleeding or petechiae. GENITOURINARY: Denies any burning micturition, frequency, or urgency. MUSCULOSKELETAL/RHEUMATOLOGICAL: Denies any joint pain, swelling, or any muscle pain. ENDOCRINE: Denies any polyuria or polydipsia. Past Medical History Past Medical History: Heart Failure, COPD History of Any Multi-Drug Resistant Organisms: None Reported Past Surgical History: No Surgical Hx Reported Past Psychological History: No Psychological Hx Reported Smoking Status: Current every day smoker Past Alcohol Use History: None Reported Past Drug Use History: None Reported Medications and Allergies Home Medications Medication Instructions Recorded Confirmed Type Atorvastatin Calcium [Lipitor] 20 mg PO DAILY 01/16/21 01/16/21 History Levothyroxine Sodium [Synthroid] 100 mcg PO DAILY 01/16/21 01/16/21 History glipiZIDE [Glucotrol] 5 mg PO BID-W/MEALS 01/16/21 01/16/21 History metFORMIN HCL [Glucophage] 500 mg PO BID-W/MEALS 01/16/21 01/16/21 History Allergies Allergy/AdvReac Type Severity Reaction Status Date / Time No Known Allergies Allergy Verified 01/16/21 09:32 Physical Exam Vitals: Vital Signs Temp Pulse Resp BP Pulse Ox 01/16/21 05:56 98 22 125/89 97 01/16/21 05:31 118 H 22 132/93 97 01/16/21 05:18 118 H 30 H 125/86 96 01/16/21 05:00 38 H 01/16/21 04:59 96 F L 125 H 22 165/108 88 L Intake and Output 01/15/21 01/16/21 01/16/21 22:59 06:59 14:59 Intake Total 51.1 Balance 51.1 Intake: IV 50 Intake, IV Titration 1.1 Amount Nitroglycerin-D5w Pmx 50 1.1 mg In Dextrose/Water 1 250ml.bag @ 10 MCG/MIN 3 mls/hr IV .Q24H [facility] Rx#: [id number] Other: Weight 111.13 kg GENERAL: The patient is alert and oriented x3, not in any acute distress. Well developed, well nourished. HEENT: Pupils are round and equally reacting to light. EOMI. No scleral icterus. No conjunctival pallor. Normocephalic, atraumatic. No pharyngeal erythema. No thyromegaly. CARDIOVASCULAR: S1 and S2 present. No murmurs, rubs, or gallops. PULMONARY: Chest is clear to auscultation, no wheezing or crackles. ABDOMEN: Soft, nontender, nondistended, normoactive bowel sounds. No palpable organomegaly. MUSCULOSKELETAL: No joint swelling or deformity. EXTREMITIES: No cyanosis, clubbing, or pedal edema. NEUROLOGICAL: Gross neurological examination did not reveal any focal deficits. SKIN: No rashes. No petechiae Results CBC & Chem 7: 01/16/21 05:04 01/16/21 05:04 Labs: Abnormal Lab Results - Last 24 Hours (Table) 01/16/21 01/16/21 01/16/21 Range/Units 05:04 05:04 05:04 WBC 20.6 H (3.8-10.6) k/uL MCV 100.8 H (80.0-100.0) fL Plt Count 497 H (150-450) k/uL Neutrophils # 13.3 H (1.3-7.7) k/uL Lymphocytes # 5.6 H (1.0-4.8) k/uL Carbon Dioxide 21 L (22-30) mmol/L Glucose 322 H (74-99) mg/dL POC Glucose (mg/dL) (75-99) mg/dL Plasma Lactic Acid Ramin 6.8 H* (0.7-2.0) mmol/L Phosphorus 5.3 H (2.5-4.5) mg/dL Troponin I (0.000-0.034) ng/mL 01/16/21 01/16/21 Range/Units 05:04 07:54 WBC (3.8-10.6) k/uL MCV (80.0-100.0) fL Plt Count (150-450) k/uL Neutrophils # (1.3-7.7) k/uL Lymphocytes # (1.0-4.8) k/uL Carbon Dioxide (22-30) mmol/L Glucose (74-99) mg/dL POC Glucose (mg/dL) 256 H (75-99) mg/dL Plasma Lactic Acid Ramin (0.7-2.0) mmol/L Phosphorus (2.5-4.5) mg/dL Troponin I 0.083 H* (0.000-0.034) ng/mL Assessment and Plan Assessment: Acute anterior ST elevation myocardial infarction, status post cardiac cath showed critical disease involving the LAD, left circumflex and the right coronary artery. Status post stenting of the LAD Acute systolic CHF. Less likely pneumonia. Cardiogenic shock Acute hypoxic respiratory failure status post intubation History of heart failure, unknown ejection fraction COPD, no acute exacerbation Plan: This is a pleasant 42 years old male presents with anterior STEMI status post stent placement to the LAD. Also with intubation for his respiratory failure Continue with dual antiplatelet therapy Continue with beta mauricio Cardiology consult on the case. Follow-up echocardiogram results Pulmonary team consult patient is already started on Lasix by cardiology team Flatwork Catcher recommended to continue with heparin because patient is on impalla and medication were reviewed.. Continue same treatment. Continue with symptomatic treatment. Resume home medication. Monitor lytes and vitals. DVT and GI prophylaxis. Further recommendations depends on the clinical course of the patient DVT prophylaxis: heparin GI Prophylaxis: Pepcid Prognosis is guarded
[2021-01-16 13:45] VITALS: BMI 31.4
[2021-01-16 13:45] LABS: ABG Base Excess -2.9 mmol/L; ABG HCO3 23 mmol/L (21-25); ABG Oxygen Saturation 98.9 % (94-97); ABG PCO2 44 mmHg (35-45); ABG PH 7.33 (7.35-7.45); ABG PO2 113 mmHg (83-108); ABG TCO2 24 mmol/L (19-24)
[2021-01-16 13:46] LABS: Allen Test Performed? no
[2021-01-16 13:47] VITALS: PULSE 80
--- NOTE | 2021-01-16 14:42 | ECHOF ---
Referral Reason:STEMI MEASUREMENTS -------- HEIGHT: 188.0 cm WEIGHT: 111.1 kg BP: 125/89 IVSd: 1.5 cm (0.6 - 1.1) LVIDd: 6.5 cm (3.9 - 5.3) LVPWd: 1.4 cm (0.6 - 1.1) IVSs: 1.6 cm LVIDs: 5.6 cm LVPWs: 1.8 cm LAESV Index (A-L): 29.69 ml/m Ao Diam: 3.5 cm (2.0 - 3.7) AV Cusp: 1.7 cm (1.5 - 2.6) FINDINGS -------- This was a technically adequate study. Pt. on a vent. The left ventricle is moderately dilated. There is moderate concentric left ventricular hypertrophy . There is moderate global hypokinesis of LV . Overall left ventricular systolic function is edwige rely impaired with, an EF between 25 - 30 %. Mitral Doppler inflow pattern suggests diastolic filli ng abnormality {E/E'}. Impella device appears to be positioned appropriately. The right ventricle is normal in size. LA is midly dilated 29-33ml/m2. The right atrial size is normal. Interatrial and interventricular septum intact. There is no evidence of aortic regurgitation. There is no evidence of aortic stenosis. The mitral valve was not well visualized. There is turbulent flow noted from the posterior mitral l eaflet however not well visualized secondary to artifact from Impella. Consider SHALINI if clinically in dicated. The tricuspid valve was not well visualized. The pulmonic valve was not well visualized. The aortic root size is normal. IVC Not well visulized. There is a small, generalized pericardial effusion present. CONCLUSIONS -------- 1. The left ventricle is moderately dilated. 2. There is moderate concentric left ventricular hypertrophy. 3. There is moderate global hypokinesis of LV . 4. Overall left ventricular systolic function is severely impaired with, an EF between 25 - 30 %. 5. Mitral Doppler inflow pattern suggest diastolic filling abnormality {E/E'}. 6. Impella device appears to be positioned appropriately. 7. LA is midly dilated 29-33ml/m2. 8. There is turbulent flow noted from the posterior mitral leaflet however not well visualized second dominick to artifact from Impella. Consider SHALINI if clinically indicated. 9. There is a small, generalized pericardial effusion present. CRABBING MACHINE OPERATOR: Shantell Polanco RDCS
[2021-01-16 15:40] LABS: Glucose,Whole Blood 278 mg/dL (75-99)
[2021-01-16] MEDS ORDERED: NITROGLYCERIN-D5W PMX 250 ML IV ONE (15:45)
[2021-01-16 17:19] VITALS: BP 93/70; RESP 30; TEMP 97.5
--- NOTE | 2021-01-16 20:41 | P.TEE ---
Description of Procedure(s): Procedure performed: Transesophageal Echocardiogram with color flow doppler, pulsed wave doppler and continuous wave doppler, moderate conscious sedation Moderate conscious sedation: Moderate conscious sedation was supplied with direct supervision of myself using Versed and Fentanyl. Complications: none Indications: Cardiogenic shock, concern of mitral regurgitation History: Is a pleasant 45-year-old male with history of diabetes mellitus who presented with chest pain was found to have anterolateral STEMI and underwent PC I of his LAD with additional circumflex and RCA stenosis. Patient had worsened cardiogenic shock despite being on an Impella and echo showed EF 30% with turbulent flow from the mitral valve, unclear if related to artifact from Impella or regurgitation. Therefore SHALINI was recommended. PROCEDURE: Due to patient's decline in status and no next of kin available decision was made to proceed with SHALINI. Patient had already been intubated and sedated. Patient was maintained on Propofol for sedation. A lubricated Omni probe was then introduced into the esophagus and stomach and multiple views were obtained. 2D echo with color flow doppler, pulsed wave doppler and continuous wave doppler was utilized. The probe was then removed. Patient tolerated the procedure well. Patient was transferred to the post procedure area in stable and satisfactory condition. FINDINGS: 1. The aortic valve is tricuspid and functions normally. No significant aortic insufficiency. 2. The mitral valve appears be normal with mild to moderate mitral regurgitation. There is systolic blunting of the left upper pulmonary vein however no significant systolic flow reversal. 3. Tricuspid valve appears to be normal with mild tricuspid regurgitation. 4. The interatrial septum is intact. No evidence of PFO. 5. Left atrial appendage is free of clot. 6. Left ventricular is mildly dilated with severely decreased ejection fraction 25-30% with global hypokinesis. Impella device is noted in proper position in the left ventricle.
[2021-01-16] MEDS ORDERED: TICAGRELOR 90 MG TAB PO SCH (21:00)
[2021-01-16] MEDS ORDERED: ATORVASTATIN 80 MG TAB PO SCH (21:00)
[2021-01-17] MEDS ORDERED: ASPIRIN 325 MG TAB PO SCH (09:00)
[2021-01-17] MEDS ORDERED: ASPIRIN 81 MG PO SCH (09:00)
--- NOTE | 2021-01-19 13:43 | CDI ---
Documentation Clarification Form Date: 01/19/21 From: Shanique Levin Admit Date: 01/16/2021 05:27:00 AM Patient Name: Hector Coker Visit Number: [id number] Discharge Date: 01/16/2021 04:27:00 PM ATTENTION: The Clinical Documentation Specialists (CDI) and [facility] Coding Staff appreciate your assistance in clarifying documentation. Please respond to the clarification below the line at the bottom and electronically sign. The CDI & [facility] Coding staff will review the response and follow-up if needed. Please note: Queries are made part of the Legal Health Record. If you have any questions, please contact the author of this message via ITS. Dr. John Mcnamara, Per your consult on 01/16 documents "Lactic acidosis, related to cardiogenic shock, the related to sepsis." Additional clarification regarding the etiology/cause of the clinical indicators is requested. History/Risk Factors: DM, COPD, HTN w heart failure Clinical Indicators: This is a pleasant 45 years old male with past medical history of heart failure and COPD. WBC: 20.6 Neutrophils: 13.3 Lactic acid: 6.8, 1.3 Blood cultures: none Vitals signs: T-96, P-125, R-22/38/30, BP-165/108, O2-88 Treatment: Treated for [place], cardiogenic shock- PTCA and Impella ID Consult: None Antibiotics: None IV Bolus: yes, vasopressor In your professional opinion, please clarify if these findings signify one of the following conditions: [ ] Sepsis POA [ ] Sepsis, Not POA [ ] Sepsis ruled out [ ] Severe Sepsis with organ failure [ ] Septic Shock [ ] SIRS, without underlying infectious process [ ] Other, please specify [ ] Unable to determine SIRS Criteria: 2 or more of the following may indicate SIRS -Temperature < 96.8F (36C) or > 101.0F (38.3C) -Heart Rate > 90 bpm -Respiratory Rate > 20 breaths/min or PaCO2 < 32 mmHg -White Blood Cell Count > 12,000 or < 4,000 cells/mm3 or > 10% bands No sepsis MTDD
== END 2021-01-16 16:27 | disposition short-term general hospital (02) | DRG 215 ==
LOC: EC 04:59 → 2SICU 05:27
PROVIDERS: ADMIT Hospitalist; ATTEND Hospitalist
DX: I21.09 ST elevation (STEMI) myocardial infarction involving other coronary artery of anterior wall (principal); J96.01 Acute respiratory failure with hypoxia; R57.0 Cardiogenic shock; I50.21 Acute systolic (congestive) heart failure; E87.2 Acidosis; I16.1 Hypertensive emergency; I31.3 Pericardial effusion (noninflammatory); E11.9 Type 2 diabetes mellitus without complications; D72.829 Elevated white blood cell count, unspecified; I11.0 Hypertensive heart disease with heart failure; J44.9 Chronic obstructive pulmonary disease, unspecified; Z20.822 Contact with and (suspected) exposure to COVID-19; I34.0 Nonrheumatic mitral (valve) insufficiency; I25.10 Atherosclerotic heart disease of native coronary artery without angina pectoris; F41.9 Anxiety disorder, unspecified; F17.200 Nicotine dependence, unspecified, uncomplicated; Z71.6 Tobacco abuse counseling; Z79.84 Long term (current) use of oral hypoglycemic drugs; Z79.890 Hormone replacement therapy; Z79.899 Other long term (current) drug therapy
CPT/HCPCS: 36415; 71045; 80053; 82805; 83605; 83615; 83735; 83880; 84100; 84484; 85025; 85384; 85610; 85730; 87635; 93005; 93306; 93312; 93320; 93325; 93458; 94002; 94660; 96374; 96375; 99291

== ENCOUNTER → 2021-02-11 | Outpatient (CLI) | payer OTHER ==
--- NOTE | 2021-02-11 15:39 | US ---
EXAMINATION TYPE: US scrotum with doppler. Grayscale and color Doppler Duplex imaging performed of jimbo herzog scrotum. DATE OF EXAM: 02/11/2021 COMPARISON: NONE CLINICAL HISTORY: N49.2 SCROTUM SWELLING. bilateral scrotal swelling for 1 year, no pain, no injury EXAM MEASUREMENTS: TESTICLES: Right Testicle: 5.9 x 3.5 x 2.6 cm Left Testicle: 5.4 x 3.8 x 3.3 cm EPIDIDYMIS HEAD: Right Epididymis: 1.0 cm Left Epididymis: unable to discern due to extensive hydrocele Doppler performed to assess for testicular vascularity; good bilateral color flow and waveforms are s een. There is no evidence of testicular torsion. Presence of hydroceles: YES, severe bilaterally Presence of varicoceles: no IMPRESSION: 1. Large bilateral hydroceles.
== END | disposition home or self-care (01) ==
LOC: RADUSWWP 14:28
PROVIDERS: ATTEND Internal Medicine
DX: N49.2 Inflammatory disorders of scrotum (principal)
CPT/HCPCS: 76870; 93975

== ENCOUNTER 2021-03-30 10:09 | Day surgery (SDC) | payer OTHER ==
[2021-03-23 10:32] VITALS: BMI 29.1
[~2021-03-30 10:09] MED LIST: ALPRAZolam 0.25 MG TAB PO PRN; ALPRAZolam 0.5 MG TAB PO PRN; ASPIRIN 325 MG TAB PO STA; HEPARIN SODIUM,PORCINE 10,000 UNIT in SODIUM CHLORIDE 0.9% 1,000 ML IRRIGATION PRN; HEPARIN SODIUM,PORCINE 2,500 UNIT in SODIUM CHLORIDE 0.9% 250 ML IRRIGATION PRN; NITROGLYCERIN SL TABS 0.4 MG TAB SUBLINGUAL PRN; SODIUM CHLORIDE 0.9% 1,000 ML in EMPTY BAG 1 BAG IV SCH
[2021-03-30 10:36] LABS: Glucose,Whole Blood 168 mg/dL (75-99)
[2021-03-30 10:40] VITALS: TEMP 97.7
[2021-03-30] MEDS ORDERED: MIDAZOLAM 2 MG/2 ML VIAL IV ONE (11:48)
[2021-03-30] MEDS ORDERED: fentaNYL (PF) 50 MCG/ML 2 ML AMP IV ONE (11:48)
[2021-03-30] MEDS: LIDOCAINE 1% INJ 10MG/ML (20 ML MDV) SQ ONE ×2 (11:51→12:15)
[2021-03-30] MEDS ORDERED: VERAPAMIL SYRINGE (5 MG/10 ML) INTRAARTER ONE (12:19)
[2021-03-30] MEDS: NITROGLYCERIN 1000MCG/10ML SYRINGE INTRACORON ONE ×3 (12:32→12:53)
[2021-03-30] MEDS ORDERED: IOPAMIDOL-370 100ML BTL INJ ONE ×2 (12:44→12:58)
[2021-03-30] MEDS ORDERED: SODIUM CHLORIDE 0.9% 1,000 ML in EMPTY BAG 1 BAG IV SCH (13:00)
[2021-03-30 13:23] LABS: Glucose,Whole Blood 131 mg/dL (75-99)
[2021-03-30 15:43] VITALS: PULSE 68; RESP 16
[2021-03-30 15:44] VITALS: BP 121/66
--- NOTE | 2021-03-30 20:51 | P.PRCINT ---
Percutaneous Coronary Int. - Percutaneous Coronary Intervention Percutaneous Coronary Intervention: PROCEDURES PERFORMED: Left coronary angiography, PCI of circumflex into OM2 with overlapping 2.5 x 18mm and 2.5 x 12mm Xience ADELE, balloon angioplasty of the origin of the circumflex, after the OM2 lesion. INDICATION: Staged PCI, ischemic cardiomyopathy HISTORY: Patient is a pleasant 46 year old male who suffered an anterolateral OH with successful PCI and developed cardiogenic shock and resultant ischemic cardiomyopathy. He has residual circumflex and RCA disease with recommendations for staged PCI likely in a staged manner given CKD, prior MANISHA after LHC. CONSENT:I have discussed the risks, benefits and alternative therapies for the above-mentioned procedure and for both sedation/analgesia as well as necessary blood product administration, if indicated, as they pertain to this patient. The patient has indicated understanding and acceptance of the risks and procedures discussed. PROCEDURE: After the risks, benefits and alternatives of the above mentioned procedure explained in detail with the patient, informed consent was obtained. Patient was taken to the catheterization lab and prepped and draped in usual fashion. Initially a right radial sheath was attempted using ultrasound guidance however access was unable to be obtained and was abandoned. Next using ultrasound guidance,a 6Fr sheath was placed in the left radial artery using modified Seldinger technique. A 6Fr CLS 3.5 guide was used to engage the left main and angiography was performed. Heparin was given for ACT> 250. A 0.014 BMW wire was advanced into the distal circumflex and a 0.014 whisper wire was advanced into the distal OM1. Predilation was performed of both the circumflex lesion as well as the OM2 lesion with a 2.0 x 8 mm balloon. There was a 70% stenosis involving the circumflex just after the OM2 branch making it a true 1,1,1 Pena class and therefore decision was made to perform angioplasty with a 2.25 x 12mm balloon. Next a 2.5 x 18mm Xience ADELE was placed from the mid circumflex into the OM2 and a second 2.5 x 12mm overlapping Xience ADELE was placed distally into OM2. There was some residual 40-50% residual stenosis of the 'jailed" circumflex however felt best treated medically. The wire was pul led and final angiograms were taken. Pre intervention there was 95% stenosis and JUNI 3 flow and post intervention there was 0% stenosis and JUNI 3 flow with no dissection. There was diffuse other 10-20% stenosis more proximal and more distal felt best treated medically. The left radial sheath was removed and a TR band was placed with hemostasis achieved. The patient tolerated the procedure well. Patient was transported back to the post catheterization holding area in stable condition. Conscious Sedation: Patient was monitored under the direct supervision of vision of myself for conscious sedation using Versed and fentanyl for a total duration of 68 minutes HEMODYNAMICS: Ao: 113/57 LV: 114/4, LVEDP 15 SELECTIVE CORONARY ARTERIOGRAPHY: LEFT MAIN: The left main is large caliber and bifurcates into the LAD and circumflex. There is no significant stenosis. LEFT ANTERIOR DESCENDING CORONARY ARTERY: The LAD is a large caliber artery with a patent proximal LAD stent and otherwise only mild 10-20% stenosis. LEFT CIRCUMFLEX CORONARY ARTERY: The left circumflex is a moderate to large caliber vessel and is nondominant. The circumflex gives off a moderate to large caliber OM1 and has mild 10-20% proximal circumflex stenosis. At the level of a moderate caliber OM2 branch there is a 95% bifurcation stenosis, Pena class 1,1,1. Otherwise there are mild luminal irregularities. RIGHT CORONARY ARTERY: The right coronary artery was not imaged however known to have obstructive disease. FINAL IMPRESSION: 1. CAD as described above including 95% mid circumflex bifurcation lesion s/p PCI of circumflex into OM2 with overlapping 2.5 x 18mm and 2.5 x 12mm Xience ADELE, balloon angioplasty of the origin of the circumflex 2. Normal left sided filling pressures 3. CKD PLAN: 1. Aggressive risk factor modification per most recent ACC/AHA guidelines. 2. Continue dual antiplatelets for 12 months. 3. Staged PCI of RCA.
== END 2021-03-30 17:33 | disposition home or self-care (01) ==
LOC: CATHCVL 10:09
PROVIDERS: ATTEND Internal Medicine
DX: I25.10 Atherosclerotic heart disease of native coronary artery without angina pectoris (principal); E11.9 Type 2 diabetes mellitus without complications; Z87.891 Personal history of nicotine dependence; I25.2 Old myocardial infarction; I25.5 Ischemic cardiomyopathy; Z20.822 Contact with and (suspected) exposure to COVID-19; I50.22 Chronic systolic (congestive) heart failure; I95.9 Hypotension, unspecified; E78.5 Hyperlipidemia, unspecified; N17.9 Acute kidney failure, unspecified; Z82.49 Family history of ischemic heart disease and other diseases of the circulatory system; R00.2 Palpitations; Z79.82 Long term (current) use of aspirin; Z79.890 Hormone replacement therapy; Z79.899 Other long term (current) drug therapy
CPT/HCPCS: 87635; C9600; C1769 ×3; C1887; C1894; C1725 ×2; C1874 ×2; J2250; J2001; J3010; J1644; Q9967

== ENCOUNTER 2021-03-31 22:34 | Emergency (ER) | payer OTHER ==
[2021-03-31 22:42] VITALS: BP 153/93; PULSE 85; RESP 18; TEMP 98.3
--- NOTE | 2021-04-01 00:21 | US ---
EXAMINATION TYPE: US venous doppler duplex UE LT DATE OF EXAM: 03/31/2021 COMPARISON: NONE CLINICAL HISTORY: rule out blood clot post cardiac stent. R/O blood clot post cardiac stent, cath yes terday. Patient states swelling and some discomfort in the elbow area. No hx of DVT. Patient takes a spirin. SIDE PERFORMED: Left Arm. Compressions at left wrist deferred due to recent procedure, color flow shown. Left Arm: No evidence of DVT in veins imaged at this time. Incidental finding: Left thyroid lobe appears very heterogeneous and measures 5.5 x 3.9 x 2.7 cm. IMPRESSION: There is some enlargement of the left thyroid lobe without a discrete mass. No evidence of deep vein thrombosis in the left arm.
--- NOTE | 2021-04-01 00:31 | ED ---
Recheck HPI - General Chief Complaint: Recheck/Abnormal Lab/Rx Stated Complaint: Complications after procedure Time Seen by Provider: 04/01/21 00:05 Source: patient, RN notes reviewed, old records reviewed Mode of arrival: ambulatory Limitations: no limitations - History of Present Illness Initial Comments: This is a 46-year-old male to the ER today. Patient coming in for pain at his right elbow medial aspect of the right elbow he also does feel little lump there. Patient has no other significant complaints. Patient's reason for concern as he just had recent heart catheterization of the left arm. Currently patient is without complaint no chest pain or shortness of breath. Patient has good sensation in his hands able to move extremities without difficulty. MD Complaint: wound re-check -: hour(s) Returns Today for: persistent/worsening pain related to initial visit (Mild pain at the right elbow area) Symptoms Since Prior Visit: no new symptoms Associated Symptoms: none Treatments Prior to Arrival: other (none) - Related Data Home Medications Medication Instructions Recorded Confirmed Atorvastatin Calcium [Lipitor] 40 mg PO HS 01/16/21 03/30/21 Levothyroxine Sodium [Synthroid] 100 mcg PO DAILY 01/16/21 03/30/21 Aspirin EC [Ecotrin Low Dose] 81 mg PO DAILY 03/25/21 03/30/21 Insulin Detemir (Levemir) [Levemir] 16 unit SQ DAILY 03/25/21 03/30/21 Losartan [Cozaar] 25 mg PO HS 03/25/21 03/30/21 Metoprolol Tartrate [Lopressor] 12.5 mg PO BID 03/25/21 03/30/21 Spironolactone [Aldactone] 25 mg PO HS 03/25/21 03/30/21 Ticagrelor [Brilinta] 90 mg PO BID 03/25/21 03/30/21 Allergies Allergy/AdvReac Type Severity Reaction Status Date / Time No Known Allergies Allergy Verified 03/31/21 22:42 Review of Systems ROS Statement: Those systems with pertinent positive or pertinent negative responses have been documented in the HPI. ROS Other: All systems not noted in ROS Statement are negative. Past Medical History Past Medical History: Heart Failure, COPD, Diabetes Mellitus, Hyperlipidemia, H ypertension, Myocardial Infarction (OH), Renal Disease Additional Past Medical History / Comment(s): KIDNEY FAILURE WHEN HE HAD RECENT OH 01/16/22 PER PATIENT Last Myocardial Infarction Date:: 01/16/21 History of Any Multi-Drug Resistant Organisms: None Reported Past Surgical History: Heart Catheterization With Stent Past Anesthesia/Blood Transfusion Reactions: No Reported Reaction Date of Last Stent Placement:: JAN 2021 Past Psychological History: No Psychological Hx Reported Smoking Status: Former smoker Past Alcohol Use History: Rare Past Drug Use History: Marijuana - Past Family History Mother Family Medical History: Cancer General Exam - General Exam Comments Initial Comments: Patient does have right medial elbow swelling, lipoma-like structure Left wrist has good radial pulse Left hand has good capillary refill Limitations: no limitations General appearance: alert, in no apparent distress Head exam: Present: atraumatic, normocephalic, normal inspection Eye exam: Present: normal appearance, PERRL, EOMI. Absent: scleral icterus, conjunctival injection, periorbital swelling ENT exam: Present: normal exam, mucous membranes moist Neck exam: Present: normal inspection. Absent: tenderness, meningismus, lymphadenopathy Respiratory exam: Present: normal lung sounds bilaterally. Absent: respiratory distress, wheezes, rales, rhonchi, stridor Cardiovascular Exam: Present: regular rate, normal rhythm, normal heart sounds. Absent: systolic murmur, diastolic murmur, rubs, gallop, clicks GI/Abdominal exam: Present: soft, normal bowel sounds. Absent: distended, tenderness, guarding, rebound, rigid Extremities exam: Present: normal inspection, full ROM, normal capillary refill. Absent: tenderness, pedal edema, joint swelling, calf tenderness Back exam: Present: normal inspection Neurological exam: Present: alert, oriented X3, CN II-XII intact Psychiatric exam: Present: normal affect, normal mood Skin exam: Present: warm, dry, intact, normal color. Absent: rash Course Vital Signs 03/31/21 22:39 Temperature 98.3 F Pulse Rate 85 Respiratory 18 Rate Blood Pressure 153/93 O2 Sat by Pulse 99 Oximetry - Reevaluation(s) Reevaluation #1: 04/01/21 00:29 Medical record is reviewed Reevaluation #2: 04/01/21 00:29 Patient has no significant acute complaints currently Reevaluation #3: 04/01/21 00:29 Patient informed results and questions answered Medical Decision Making - Medical Decision Making 46 male to ER with positive thrombophlebitis of the right arm likely, R unknown discrete mass. Patient has no other findings and can be discharged home Disposition Clinical Impression: Left elbow pain, Mass of left elbow, Superficial thrombophlebitis of arm Disposition: HOME SELF-CARE Condition: Good Instructions (If sedation given, give patient instructions): Superficial Thrombophlebitis (ED) Is patient prescribed a controlled substance at d/c from ED?: No Referrals: Maricruz Nobles MD [Primary Care Provider] - 1-2 days
== END 2021-04-01 00:53 | disposition home or self-care (01) ==
LOC: EC 22:34
DX: I80.8 Phlebitis and thrombophlebitis of other sites (principal); E78.5 Hyperlipidemia, unspecified; J44.9 Chronic obstructive pulmonary disease, unspecified; I11.0 Hypertensive heart disease with heart failure; I50.9 Heart failure, unspecified; E11.9 Type 2 diabetes mellitus without complications; I25.2 Old myocardial infarction; Z79.899 Other long term (current) drug therapy; Z79.82 Long term (current) use of aspirin; Z79.84 Long term (current) use of oral hypoglycemic drugs; Z79.4 Long term (current) use of insulin; Z87.891 Personal history of nicotine dependence
CPT/HCPCS: 99283

== ENCOUNTER → 2021-04-12 | Outpatient (CLI) | payer OTHER | END | disposition home or self-care (01) | LOC: LABPAT 13:42 | PROVIDERS: ATTEND Internal Medicine | DX: U07.1 COVID-19 (principal) ==

== ENCOUNTER 2021-04-13 11:01 | Day surgery (SDC) | payer OTHER ==
[2021-04-09 16:06] VITALS: BMI 28.6
[~2021-04-13 11:01] MED LIST changes: +ASPIRIN 325 MG TAB PO ONE; -ASPIRIN 325 MG TAB PO STA; +ATORVASTATIN 80 MG TAB PO ONE; -HEPARIN SODIUM,PORCINE 10,000 UNIT in SODIUM CHLORIDE 0.9% 1,000 ML IRRIGATION PRN; -HEPARIN SODIUM,PORCINE 2,500 UNIT in SODIUM CHLORIDE 0.9% 250 ML IRRIGATION PRN
[2021-04-13] MEDS ORDERED: SODIUM CHLORIDE 0.9% 1,000 ML IV ONE (11:09)
[2021-04-13] MEDS ORDERED: LIDOCAINE 1% INJ 10MG/ML (20 ML MDV) ONE (11:11)
[2021-04-13] MEDS ORDERED: VERAPAMIL 2.5 MG/ML 2 ML AMP ONE (11:12)
[2021-04-13 11:33] LABS: Glucose,Whole Blood 154 mg/dL (75-99)
[2021-04-13 11:54] LABS: Basophils # (A) 0.1 k/uL (0-0.2); Basophils % (A) 1 %; Eosinophils # (A) 0.6 k/uL (0-0.7); Eosinophils % (A) 5 %; HCT 36.2 % (39.0-53.0); HGB 12.2 gm/dL (13.0-17.5); Lymphocytes # (A) 3.2 k/uL (1.0-4.8); Lymphocytes % (A) 25 %; MCH 30.2 pg (25.0-35.0); MCHC 33.8 g/dL (31.0-37.0); MCV 89.5 fL (80.0-100.0); Mean Platelet Volume 6.7; Monocytes # (A) 0.6 k/uL (0-1.0); Monocytes % (A) 5 %; Neutrophils # (A) 8.1 k/uL (1.3-7.7); Neutrophils % (A) 64 %; Platelet Count 321 k/uL (150-450); RBC 4.05 m/uL (4.30-5.90); RDW 14.3 % (11.5-15.5); WBC 12.7 k/uL (3.8-10.6)
[2021-04-13 12:00] LABS: African American GFR (CKD) >90 (>60 ml/min/1.73 sqM); Anion Gap 6 mmol/L; Blood Urea Nitrogen 24 mg/dL (9-20); Calcium 9.4 mg/dL (8.4-10.2); Carbon Dioxide 23 mmol/L (22-30); Chloride 108 mmol/L (98-107); Glucose 143 mg/dL (74-99); Non-African American GFR(CKD) 78 (>60 ml/min/1.73 sqM); Potassium 4.7 mmol/L (3.5-5.1); Sodium 137 mmol/L (137-145)
[2021-04-13] MEDS ORDERED: fentaNYL (PF) 50 MCG/ML 2 ML AMP ONE (12:11)
[2021-04-13] MEDS ORDERED: LIDOCAINE 1% INJ 10MG/ML (20 ML MDV) SQ ONE ×4 (12:14→12:15)
[2021-04-13] MEDS: fentaNYL (PF) 50 MCG/ML 2 ML AMP IV ONE ×3 (12:14→13:36)
[2021-04-13] MEDS: MIDAZOLAM 2 MG/2 ML VIAL IV ONE ×3 (12:14→13:34)
[2021-04-13] MEDS ORDERED: HEPARIN SODIUM 1,000 UN/ML (10ML VL) ONE ×2 (12:16→13:16)
[2021-04-13] MEDS ORDERED: VERAPAMIL SYRINGE (5 MG/10 ML) INTRAARTER ONE (12:17)
[2021-04-13] MEDS: HEPARIN SODIUM 1,000 UN/ML (10ML VL) IV ONE ×4 (12:27→13:02)
[2021-04-13] MEDS ORDERED: NITROGLYCERIN 1000MCG/10ML SYRINGE INTRACORON ONE (12:40)
[2021-04-13] MEDS ORDERED: HEPARIN SODIUM 1,000 UN/ML (10ML VL) IV ONE (13:17)
[2021-04-13] MEDS ORDERED: IOPAMIDOL-370 125ML BTL INJ ONE (13:37)
[2021-04-13] MEDS ORDERED: TIROFIBAN BOLUS 12.5MG/250 ML BAG IV ONE (13:45)
[2021-04-13] MEDS ORDERED: TIROFIBAN 12.5MG-250ML NS 250 ML IV ONE (13:45)
[2021-04-13] MEDS ORDERED: IOPAMIDOL-370 100ML BTL INJ ONE (13:45)
[2021-04-13] MEDS ORDERED: ATROPINE SULFATE 0.1 MG/ML 10ML SYRINGE IV PRN (13:55)
[2021-04-13] MEDS ORDERED: ZOLPIDEM 5 MG TAB PO PRN (13:55)
[2021-04-13] MEDS ORDERED: RX INFO: IV CONTRAST WAS GIVEN 1 EACH MISC MISCELLANE PRN (13:55)
[2021-04-13] MEDS ORDERED: MAG HYDROX/AL HYDROX/SIMETH 30 ML CUP PO PRN (13:55)
[2021-04-13] MEDS ORDERED: SODIUM CHLORIDE 0.9% 1,000 ML in EMPTY BAG 1 BAG IV SCH (14:00)
[2021-04-13] MEDS: TIROFIBAN 12.5MG-250ML NS 250 ML IV SCH (14:00)
[2021-04-13] MEDS ORDERED: TIROFIBAN 12.5MG-250ML NS 250 ML IV SCH (14:15)
[2021-04-13 16:59] LABS: Glucose,Whole Blood 151 mg/dL (75-99)
--- NOTE | 2021-04-13 18:15 | P.PRCINT ---
Percutaneous Coronary Int. - Percutaneous Coronary Intervention Percutaneous Coronary Intervention: PROCEDURES PERFORMED: Right coronary angiography, PCI of RCA with overlapping 3.5 x33mm and 3.5 x 15mm Xience ADELE, post dilated with a 4.0 NC balloon, IVUS RCA INDICATION: Staged PCI, ischemic cardiomyopathy HISTORY: Patient is a pleasant 46 year old male who suffered an anterolateral OH with successful PCI and developed cardiogenic shock and resultant ischemic cardiomyopathy. He underwent staged PCI of circumflex and recommendation for additional staged PCI RCA. CONSENT:I have discussed the risks, benefits and alternative therapies for the above-mentioned procedure and for both sedation/analgesia as well as necessary blood product administration, if indicated, as they pertain to this patient. The patient has indicated understanding and acceptance of the risks and procedures discussed. PROCEDURE: After the risks, benefits and alternatives of the above mentioned procedure explained in detail with the patient, informed consent was obtained. Patient was taken to the catheterization lab and prepped and draped in usual fashion. Using ultrasound guidance,a 6Fr sheath was placed in the left radial artery using modified Seldinger technique. A 6Fr AL 0.75 guide was used to engage the RCA and angiography was performed. Heparin was given for ACT> 250. A 0.014 BMW wire was advanced into the distal RCA. Predilation was performed with a 2.5 x 15 mm balloon. Next a 3.5 x 33 mm Xience ADELE was placed at the mid RCA and an overlapping 3.5 x 15mm Xience ADELE was placed more proximally. The stent was post dilated with a 4.0 NC balloon. There was some thrombus noted at the site of a small jailed off marginal branch and heparin was noted to be mildly subtheraputic so additional heparin was given and Aggrastat as well as balloon angioplasty at this site with a 3.5 balloon. Additionally IVUS was pe rformed which showed well expanded stent with diffuse disease more proximally of approximately 30-40% however no dissection and mild amount of residual thrombus. Final angiograms were performed which showed improvement in the thrombus. Pre intervention there was 85% stenosis and JUNI 3 flow and post intervention there was 0% stenosis and JUNI 3 flow with no dissection. The left radial sheath was removed and a TR band was placed with hemostasis achieved. The patient tolerated the procedure well. Patient was transported back to the post catheterization holding area in stable condition. Conscious Sedation: Patient was monitored under the direct supervision of vision of myself for conscious sedation using Versed and fentanyl for a total duration of 68 minutes HEMODYNAMICS: Ao: 114/64 SELECTIVE CORONARY ARTERIOGRAPHY: LEFT MAIN: Not imaged LEFT ANTERIOR DESCENDING CORONARY ARTERY: Not imaged LEFT CIRCUMFLEX CORONARY ARTERY: Not imaged RIGHT CORONARY ARTERY: The right coronary artery is a large caliber vessel with diffuse 30% proximal stenosis and proximal to mid greater than 50% stenosis with the worst portion having an 85% stenosis. The remained of the RCA has mild michelle tammy irregularities. The proximal PDA has a 50-60% stenosis. FINAL IMPRESSION: 1. CAD as described above including 85% mid RCA stenosis, s/p PCI with overlapping 3.5 x 33 and 3.5 x 15mm Xience ADELE, post dilated with a 4.0 NC balloon PLAN: 1. Aggressive risk factor modification per most recent ACC/AHA guidelines. 2. Continue dual antiplatelets for 12 months.
[2021-04-13] MEDS: METOPROLOL TARTRATE 12.5 MG TAB PO SCH (20:50)
[2021-04-13] MEDS: TICAGRELOR 90 MG TAB PO SCH (20:50)
[2021-04-13 20:51] LABS: Glucose,Whole Blood 156 mg/dL (75-99)
[2021-04-13] MEDS ORDERED: ATORVASTATIN 40 MG TAB PO SCH (21:00)
[2021-04-13] MEDS ORDERED: SPIRONOLACTONE 25 MG TAB PO SCH (21:00)
[2021-04-13] MEDS ORDERED: LOSARTAN 25 MG TAB PO SCH (21:00)
[2021-04-14] MEDS: TIROFIBAN 12.5MG-250ML NS 250 ML IV SCH (04:12)
[2021-04-14 04:22] VITALS: TEMP 98.3
[2021-04-14] MEDS ORDERED: LEVOTHYROXINE 112 MCG TAB PO SCH (06:30)
[2021-04-14 07:24] LABS: Glucose,Whole Blood 142 mg/dL (75-99)
[2021-04-14 08:12] LABS: Basophils # (A) 0.1 k/uL (0-0.2); Basophils % (A) 1 %; Eosinophils # (A) 0.5 k/uL (0-0.7); Eosinophils % (A) 4 %; HCT 34.4 % (39.0-53.0); HGB 11.6 gm/dL (13.0-17.5); Lymphocytes # (A) 2.4 k/uL (1.0-4.8); Lymphocytes % (A) 22 %; MCH 30.4 pg (25.0-35.0); MCHC 33.8 g/dL (31.0-37.0); MCV 89.9 fL (80.0-100.0); Mean Platelet Volume 7.1; Monocytes # (A) 0.6 k/uL (0-1.0); Monocytes % (A) 6 %; Neutrophils # (A) 7.2 k/uL (1.3-7.7); Neutrophils % (A) 67 %; Platelet Count 316 k/uL (150-450); RBC 3.82 m/uL (4.30-5.90); RDW 14.4 % (11.5-15.5); WBC 10.9 k/uL (3.8-10.6)
[2021-04-14 08:29] VITALS: RESP 16
[2021-04-14] MEDS: METOPROLOL TARTRATE 12.5 MG TAB PO SCH (08:29)
[2021-04-14] MEDS: TICAGRELOR 90 MG TAB PO SCH (08:29)
[2021-04-14 08:34] LABS: African American GFR (CKD) >90 (>60 ml/min/1.73 sqM); Anion Gap 6 mmol/L; Blood Urea Nitrogen 16 mg/dL (9-20); Calcium 9.2 mg/dL (8.4-10.2); Carbon Dioxide 21 mmol/L (22-30); Chloride 110 mmol/L (98-107); Glucose 130 mg/dL (74-99); Non-African American GFR(CKD) 87 (>60 ml/min/1.73 sqM); Potassium 4.7 mmol/L (3.5-5.1); Sodium 137 mmol/L (137-145)
[2021-04-14] MEDS ORDERED: INSULIN DETEMIR (LEVEMIR) 100 UNIT/ML SYR SQ SCH (09:00)
[2021-04-14] MEDS ORDERED: FERROUS SULFATE 325 MG TAB PO SCH (09:00)
[2021-04-14] MEDS ORDERED: ASPIRIN 81 MG PO SCH (09:00)
[2021-04-14 11:38] LABS: Glucose,Whole Blood 148 mg/dL (75-99)
[2021-04-14 11:54] VITALS: BP 133/81; PULSE 90
--- NOTE | 2021-04-14 19:35 | P.DS ---
Providers Attending physician: Esteban Johnson DO Consults: 04/13/21 13:55 Consult Physician Routine Consulting Provider: [facility] Consult Reason/Comments: Post Interventional patient Do you want consulting provider notified?: Already Contacted Primary care physician: Maricruz [facility] Course: Patient is a pleasant 46 year old male who suffered an anterolateral NM in the past with successful PCI and developed cardiogenic shock and resultant ischemic cardiomyopathy. He underwent staged outpt PCI of circumflex approximately a week ago and was brought back for additional staged PCI RCA which was split into 2 procedures given prior CKD/MANISHA. He underwent successful PCI of the RCA from a left radial approach on 04/13. He did have some stent thrombus noted on IVUS around the site of a small jailed off branch during procedure which was improved with medical therapy with heparin and Aggrastat. Patient did well postoperatively and was discharged home on 04/14/21. On 04/14 he did have mild erythema of the left hand with 2/4 left radial pulse and no chest pain or SOB. Lungs CTAB, Heart RRR, no murmur. He will follow up in cardiology office in 1 week. Plan - Discharge Summary Discharge Rx Participant: No New Discharge Prescriptions: No Action Atorvastatin Calcium [Lipitor] 40 mg PO HS Spironolactone [Aldactone] 25 mg PO HS Ergocalciferol [Vitamin D2 (1250 Mcg = 55550 Iu)] 1,250 mcg PO WEEKLY Insulin Detemir (Levemir) [Levemir] 16 unit SQ QAM Ticagrelor [Brilinta] 90 mg PO BID Metoprolol Tartrate [Lopressor] 12.5 mg PO BID Losartan [Cozaar] 25 mg PO HS Aspirin EC [Ecotrin Low Dose] 81 mg PO DAILY Ferrous Sulfate [Feosol] 325 mg PO DAILY Levothyroxine Sodium 112 mcg PO DAILY Discharge Medication List Atorvastatin Calcium [Lipitor] 40 mg PO HS 01/16/21 [History] Aspirin EC [Ecotrin Low Dose] 81 mg PO DAILY 03/25/21 [History] Insulin Detemir (Levemir) [Levemir] 16 unit SQ QAM 03/25/21 [History] Losartan [Cozaar] 25 mg PO HS 03/25/21 [History] Metoprolol Tartrate [Lopressor] 12.5 mg PO BID 03/25/21 [History] Spironolactone [Aldactone] 25 mg PO HS 03/25/21 [History] Ticagrelor [Brilinta] 90 mg PO BID 03/25/21 [History] Ergocalciferol [Vitamin D2 (1250 Mcg = 29313 Iu)] 1,250 mcg PO WEEKLY 04/09/21 [History] Ferrous Sulfate [Feosol] 325 mg PO DAILY 04/09/21 [History] Levothyroxine Sodium 112 mcg PO DAILY 04/09/21 [History] Follow up Appointment(s)/Referral(s): Esteban Johnson DO [STAFF PHYSICIAN] - 04/21/21 2:45 pm (Monday) Patient Instructions/Handouts: *Surgery [facility] - After Heart Catheterization - [employer] Instructions, Coronary Intravascular Stent Placement (DC) Discharge Disposition: HOME SELF-CARE
[2021-04-16] MEDS ORDERED: ERGOCALCIFEROL 1,250 MCG (50,000 IU) CAPSULE PO SCH (09:00)
== END 2021-04-14 12:53 | disposition home or self-care (01) ==
LOC: CATHCVL 11:01 → 3SCARD 13:40 → CATHCVL 04-14 12:53
PROVIDERS: ATTEND Internal Medicine
DX: I25.10 Atherosclerotic heart disease of native coronary artery without angina pectoris (principal); I25.5 Ischemic cardiomyopathy; Z95.5 Presence of coronary angioplasty implant and graft; E11.9 Type 2 diabetes mellitus without complications; Z87.891 Personal history of nicotine dependence; I25.2 Old myocardial infarction; I95.9 Hypotension, unspecified; I11.0 Hypertensive heart disease with heart failure; I50.22 Chronic systolic (congestive) heart failure; E78.5 Hyperlipidemia, unspecified; N17.9 Acute kidney failure, unspecified; Z82.49 Family history of ischemic heart disease and other diseases of the circulatory system; Z79.02 Long term (current) use of antithrombotics/antiplatelets; Z79.82 Long term (current) use of aspirin; Z79.890 Hormone replacement therapy; Z79.899 Other long term (current) drug therapy; Z20.822 Contact with and (suspected) exposure to COVID-19
CPT/HCPCS: 92978; 80048 ×2; 85025 ×2; 87635; C9600; C1769 ×3; C1887 ×2; C1894; C1725 ×3; C1753; C1874 ×2; J2250; J2001; J3010; J1644; J3246; Q9967 ×2

== ENCOUNTER 2021-09-14 12:17 | Emergency (ER) | payer OTHER ==
[2021-09-14 12:21] VITALS: PULSE 76; RESP 20; TEMP 98.3
--- NOTE | 2021-09-14 13:29 | ED ---
General Adult HPI - General Chief complaint: Recheck/Abnormal Lab/Rx Stated complaint: Throat issues Time Seen by Provider: 09/14/21 12:41 Source: patient, RN notes reviewed Mode of arrival: ambulatory Limitations: no limitations - History of Present Illness Initial comments: Patient is a 46-year-old male who presents to the emergency room with complaints of concerns regarding his thyroid. He reports that he has had some increased hoarseness and intermittent difficulty in breathing over the last 2 days. He denies any difficulty in breathing at this time but is worse. He denies any difficulty swallowing or shortness of breath. He reports that he has a large goiter and was advised previously that he needed surgical intervention however at the time he was dealing with several other medical conditions including acute renal failure with a myocardial infarction in January of last year. He reports medical standpoint he is doing much better though he does admit to recently starting smoking again. He denies any tachycardia, bradycardia, dizziness, diaphoresis, unintentional weight changes, changes in his chronic fatigue, temperature intolerance, chest pain or difficulty swallowing. He is following with his primary care provider in regards to his thyroid medications and reports no recent changes in his medication he is currently taking 125 g of Synthroid daily. In addition to his thyroid disease and and CAD with ID he has a past m edical history significant for diabetes, hypertension, hyperlipidemia and COPD. She denies any other complaints or concerns at this time. - Related Data Home Medications Medication Instructions Recorded Confirmed Atorvastatin Calcium [Lipitor] 40 mg PO HS 01/16/21 04/13/21 Aspirin EC [Ecotrin Low Dose] 81 mg PO DAILY 03/25/21 04/13/21 Insulin Detemir (Levemir) [Levemir] 16 unit SQ QAM 03/25/21 04/13/21 Losartan [Cozaar] 25 mg PO HS 03/25/21 04/13/21 Metoprolol Tartrate [Lopressor] 12.5 mg PO BID 03/25/21 04/13/21 Spironolactone [Aldactone] 25 mg PO HS 03/25/21 04/13/21 Ticagrelor [Brilinta] 90 mg PO BID 03/25/21 04/13/21 Ergocalciferol [Vitamin D2 (1250 1,250 mcg PO WEEKLY 04/09/21 04/13/21 Mcg = 25930 Iu)] Ferrous Sulfate [Feosol] 325 mg PO DAILY 04/09/21 04/13/21 Levothyroxine Sodium 112 mcg PO DAILY 04/09/21 04/13/21 Previous Rx's Medication Instructions Recorded methylPREDNISolone Dose Pack 4 mg PO DIRECTED #21 tab 09/14/21 [Medrol Dose Pack] Allergies Allergy/AdvReac Type Severity Reaction Status Date / Time No Known Allergies Allergy Verified 04/13/21 11:19 Review of Systems ROS Statement: Those systems with pertinent positive or pertinent negative responses have been documented in the HPI. ROS Other: All systems not noted in ROS Statement are negative. Past Medical History Past Medical History: Heart Failure, COPD, Diabetes Mellitus, Hyperlipidemia, Hypertension, Myocardial Infarction (ID), Renal Disease, Thyroid Disorder Additional Past Medical History / Comment(s): "KIDNEY FAILURE WITH RECENT ID 01/16/22". Last Myocardial Infarction Date:: 01/16/21 History of Any Multi-Drug Resistant Organisms: None Reported Past Surgical History: Heart Catheterization With Stent Past Anesthesia/Blood Transfusion Reactions: No Reported Reaction Date of Last Stent Placement:: JAN 2021 Past Psychological History: No Psychological Hx Reported Smoking Status: Former smoker Past Alcohol Use History: Rare Past Drug Use History: Marijuana - Past Family History Mother Family Medical History: Cancer General Exam Limitations: no limitations General appearance: alert, in no apparent distress Head exam: Present: atraumatic, normocephalic, normal inspection Eye exam: Present: normal appearance, PERRL, EOMI. Absent: scleral icterus, conjunctival injection, periorbital swelling Neck exam: Present: thyromegaly, other (Diffuse goiter) Respiratory exam: Present: decreased breath sounds. Absent: respiratory distress, wheezes, rales, rhonchi, stridor, accessory muscle use Cardiovascular Exam: Present: regular rate, normal rhythm, normal heart sounds. Absent: systolic murmur, diastolic murmur, rubs, gallop, clicks GI/Abdominal exam: Present: soft, normal bowel sounds. Absent: distended, tenderness, guarding, rebound, rigid Extremities exam: Present: normal inspection, full ROM, normal capillary refill. Absent: tenderness, pedal edema, joint swelling, calf tenderness Back exam: Present: normal inspection Neurological exam: Present: alert, oriented X3, CN II-XII intact Psychiatric exam: Present: normal affect, normal mood Skin exam: Present: warm, dry, intact, normal color. Absent: rash Course Vital Signs 09/14/21 09/14/21 12:18 15:00 Temperature 98.3 F 98.3 F Pulse Rate 76 76 Respiratory 20 20 Rate Blood Pressure 141/81 111/69 O2 Sat by Pulse 98 98 Oximetry Medical Decision Making - Medical Decision Making No evidence of respiratory distress with patent airway. Will check ultrasound of the thyroid and soft tissue along with chest x-ray in the setting of intermittent shortness of breath. Will also check the CMP, CBC and thyroid labs. Thyroid labs stable. No evidence of thyroiditis. Mild leukocytosis noted without any evidence of acute infection at this time no need for antibiotic therapy. Lungs sounds diminished will give dose of solumedrol and placed on a Medrol Dosepak to help with aeration and advised to follow-up with his primary care pr ovider in regards to further evaluation and treatment of his thyroid disease and goiter. Case discussed with Dr. Sexton - Lab Data Result diagrams: 09/14/21 13:36 09/14/21 13:36 Lab Results 09/14/21 09/14/21 Range/Units 13:36 13:36 WBC 14.9 H (3.8-10.6) k/uL RBC 5.12 (4.30-5.90) m/uL Hgb 16.4 (13.0-17.5) gm/dL Hct 48.4 (39.0-53.0) % MCV 94.5 (80.0-100.0) fL MCH 32.1 (25.0-35.0) pg MCHC 34.0 (31.0-37.0) g/dL RDW 13.0 (11.5-15.5) % Plt Count 351 (150-450) k/uL MPV 7.1 Neutrophils % 76 % Lymphocytes % 15 % Monocytes % 4 % Eosinophils % 2 % Basophils % 0 % Neutrophils # 11.3 H (1.3-7.7) k/uL Lymphocytes # 2.3 (1.0-4.8) k/uL Monocytes # 0.7 (0-1.0) k/uL Eosinophils # 0.3 (0-0.7) k/uL Basophils # 0.1 (0-0.2) k/uL Sodium 139 (137-145) mmol/L Potassium 4.8 (3.5-5.1) mmol/L Chloride 106 (98-107) mmol/L Carbon Dioxide 25 (22-30) mmol/L Anion Gap 8 mmol/L BUN 18 (9-20) mg/dL Creatinine 1.11 (0.66-1.25) mg/dL Est GFR (CKD-EPI)AfAm >90 (>60 ml/min/1.73 sqM) Est GFR (CKD-EPI)NonAf 81 (>60 ml/min/1.73 sqM) Glucose 130 H (74-99) mg/dL Calcium 9.4 (8.4-10.2) mg/dL TSH 0.605 (0.465-4.680) mIU/L Free T4 1.25 (0.78-2.19) ng/dL Free T3 pg/mL 3.1 (2.8-5.3) pg/ml - Radiology Data Radiology results: report reviewed, image reviewed Chest x-ray negative for acute cardiopulmonary processes. Ultrasound of the thyroid shows marked thyromegaly suggesting greater diffuse thyroiditis no discrete nodules. Disposition Clinical Impression: Goiter diffuse Disposition: HOME SELF-CARE Condition: Stable Instructions (If sedation given, give patient instructions): Thyroid Goiter (ED), Hyperthyroidism (ED) Additional Instructions: Please continue take her thyroid medication as prescribed. Complete Medrol Dosepak. Smoking cessation encouraged. Please follow-up with your primary care provider for further evaluation and treatment of both your thyroid disease and goiter. Please return to the Emergency Department if symptoms worsen or any other concerns. Prescriptions: methylPREDNISolone Dose Pack [Medrol Dose Pack] 4 mg PO DIRECTED #21 tab Is patient prescribed a controlled substance at d/c from ED?: No Referrals: Maricruz Nobles MD [Primary Care Provider] - 1-2 days
[2021-09-14 14:06] LABS: Basophils # (A) 0.1 k/uL (0-0.2); Basophils % (A) 0 %; Eosinophils # (A) 0.3 k/uL (0-0.7); Eosinophils % (A) 2 %; HCT 48.4 % (39.0-53.0); HGB 16.4 gm/dL (13.0-17.5); Lymphocytes # (A) 2.3 k/uL (1.0-4.8); Lymphocytes % (A) 15 %; MCH 32.1 pg (25.0-35.0); MCV 94.5 fL (80.0-100.0); Mean Platelet Volume 7.1; Monocytes # (A) 0.7 k/uL (0-1.0); Monocytes % (A) 4 %; Neutrophils # (A) 11.3 k/uL (1.3-7.7); Neutrophils % (A) 76 %; Platelet Count 351 k/uL (150-450); RBC 5.12 m/uL (4.30-5.90); WBC 14.9 k/uL (3.8-10.6)
[2021-09-14 14:07] LABS: African American GFR (CKD) >90 (>60 ml/min/1.73 sqM); Anion Gap 8 mmol/L; Blood Urea Nitrogen 18 mg/dL (9-20); Calcium 9.4 mg/dL (8.4-10.2); Carbon Dioxide 25 mmol/L (22-30); Chloride 106 mmol/L (98-107); Glucose 130 mg/dL (74-99); Non-African American GFR(CKD) 81 (>60 ml/min/1.73 sqM); Potassium 4.8 mmol/L (3.5-5.1); Sodium 139 mmol/L (137-145)
[2021-09-14 14:24] LABS: T4, Free (Free Thyroxine) 1.25 ng/dL (0.78-2.19)
--- NOTE | 2021-09-14 14:39 | XR ---
EXAMINATION TYPE: XR chest 2V DATE OF EXAM: 09/14/2021 COMPARISON: 01/16/2021 HISTORY: Chest pain TECHNIQUE: Frontal and lateral views of the chest are obtained. FINDINGS: There is no focal air space opacity. No evidence for pneumothorax. No pleural effusion. The cardiac silhouette size is within normal limits. The osseous structures are grossly intact. IMPRESSION: 1. No acute cardiopulmonary process.
[2021-09-14] MEDS ORDERED: methylPREDNISolone ACETATE 80 MG/ML 1 ML VIAL IM STA (14:51)
--- NOTE | 2021-09-14 14:56 | US ---
EXAMINATION TYPE: US thyroid st tissue head/neck DATE OF EXAM: 09/14/2021 COMPARISON: NONE CLINICAL HISTORY: 46-year-old male increase goiter size. Hx of enlarged thyroid. On thyroid medicatio n x years. Difficulty breathing. TECHNIQUE: Multiple sonographic images of the thyroid gland are obtained. FINDINGS: GLAND SIZE: Right Lobe: 9.2 x 3.9 x 2.8 cm Overall Parenchyma: heterogenous Left Lobe: 7.5 x 3.1 x 3.4 cm Overall Parenchyma: heterogeneous Isthmus Thickness: 1.7 cm NODULES RIGHT: # of nodules measured on right: 0 LEFT: # of nodules measured on left: 0 ISTHMUS: # of nodules measured in the isthmus: 0 Bilateral neck scanned, no evidence of lymphadenopathy. Human Resources Benefits Administrator notes: Thyroid is diffusely enlarged and heterogeneous. IMPRESSION: Marked thyromegaly suggesting goiter or diffuse thyroiditis. No discrete nodules.
[2021-09-14] MEDS ORDERED: methylPREDNISolone SOD SUCCI 125 MG/2 ML VIAL IV STA (14:58)
[2021-09-14 15:09] VITALS: BP 111/69
== END 2021-09-14 16:05 | disposition home or self-care (01) ==
LOC: EC 12:17
DX: E04.9 Nontoxic goiter, unspecified (principal); I11.0 Hypertensive heart disease with heart failure; J44.9 Chronic obstructive pulmonary disease, unspecified; E11.9 Type 2 diabetes mellitus without complications; E78.5 Hyperlipidemia, unspecified; Z87.891 Personal history of nicotine dependence
CPT/HCPCS: 36415; 84439; 84481; 80048; 84443; 85025; 86800; 71046; 76536; 99284; 96374; J2930

== ENCOUNTER → 2023-05-24 | Outpatient (CLI) | payer OTHER ==
--- NOTE | 2023-05-26 12:04 | US ---
EXAMINATION TYPE: US kidneys/renal and bladder DATE OF EXAM: 05/24/2023 COMPARISON: NONE CLINICAL INDICATION: Male, 48 years old with history of R94.4 ABNORMAL RENAL FUNCTION; Hx of acute re nal failure due to SD; Right flank pain with nausea and vomiting; Hx Smoker - quitting EXAM MEASUREMENTS: Right Kidney: 12.7 x 5.3 x 4.8 cm Left Kidney: 12.9 x 5.0 x 6.7 cm Right Kidney: wnl without hydronephrosis. Left Kidney: Upper to mid pole cyst measuring 1.8 x 3.2 x 2.3 cm. No hydronephrosis. Bladder: Nondistention limited evaluation. IMPRESSION: 1. An incidental upper or mid pole cyst in the left kidney measuring 3.2 cm. 2. No hydronephrosis on either side. 3. Suboptimal assessment of the bladder due to nondistention.
== END | disposition home or self-care (01) ==
LOC: RADUSWWP 15:03
PROVIDERS: ATTEND Internal Medicine
DX: R94.4 Abnormal results of kidney function studies (principal); N28.1 Cyst of kidney, acquired
CPT/HCPCS: 76770